=== PATIENT | male | born 1950 | race Caucasian/White ===

== ENCOUNTER 2020-04-19 20:12 | Inpatient (IN) | payer SELFPAY ==
[2020-04-19] VITALS (11 sets, daily range): BP systolic 128–212; BP diastolic 76–133; PULSE 78–134; RESP 18–29; O2SAT 87–100; BMI 29.5
--- NOTE | ~2020-04-19 | XR_ITS ---
EXAMINATION: XR CHEST CLINICAL INFORMATION: CHF COMPARISON: 07/07/2011 TECHNIQUE: Frontal view of the chest was obtained. FINDINGS: Compared to the prior study, the lungs are hypoventilated and diffuse ill-defined infiltrates are seen right greater than left. A small left pleural effusion is present. Differential diagnosis would include CHF with edema versus infection with multifocal infiltrates. XR/XR chest 1V IMPRESSION: Pulmonary infiltrates as described above. Differential includes CHF with edema versus multifocal infection.
--- NOTE | 2020-04-19 20:15 | ECG_ITS ---
Test Reason : REPEAT Blood Pressure : / mmHG Vent. Rate : 081 BPM Atrial Rate : 081 BPM P-R Int : 184 ms QRS Dur : 142 ms QT Int : 462 ms P-R-T Axes : 045 -44 103 degrees QTc Int : 536 ms Normal sinus rhythm Left axis deviation Non-specific intra-ventricular conduction block Nonspecific T wave abnormality Abnormal ECG When compared with ECG of 19-APR-2020 20:20, Left bundle branch block not present Referred By: Ash Ortega Electronically Signed By:Felix Kidd
--- NOTE | 2020-04-19 20:24 | ED_ITS ---
HPI - SOB/Dyspnea General Chief Complaint: Dyspnea Stated Complaint: resp distress Time Seen by Provider: 04/19/20 20:14 Source: patient Mode of arrival: EMS Limitations: no limitations History of Present Illness HPI Narrative: Patient with history of hypertension sleep apnea CHF COPD came by EMS for increased shortness of breath since 15:00 today patient was unable to speak full sentences when arrived by EMS on arrival patient's heart rate was 133 blood pressure 225/130 patient was an extremely respiratory distress sitting in tripod position,placed on BiPAP on arrival no fever no chills no recent COVID contact patient is on Lasix and noticed that his legs are more swollen lately MD elicited complaint: shortness of breath Related Data Home Medications Medication Instructions Recorded Confirmed No Known Home Meds 04/19/20 04/19/20 Allergies Allergy/AdvReac Type Severity Reaction Status Date / Time No Known Allergies Allergy Unverified 11/20/19 16:15 Review of Systems Review of Systems: Constitutional : No Weight loss, No Fever, No Chills ENT/Mouth : No sore throat, No Rhinorrhea Eyes: No Eye Pain, No Swelling Cardiovascular : No Chest Pain, no palpitations Respiratory : No Cough, No Sputum, ++ shortness of breath Gastrointestinal : no Nausea, No Vomiting, No Diarrhea, No abdominal Pain, no black stools Genitourinary : No Dysuria, No Urinary Frequency Musculoskeletal : No joint pain, No Myalgias, No Joint Swelling Skin : No Skin Lesions, No rash Neuro : No Weakness, No Numbness, No Dizziness, No Headache Psych : No Anxiety/Panic, No Depression Heme/Lymph: No Bruising, No Lymphadenopathy Endocrine : No Polyuria, No Polydipsia All other systems reviewed and are negative [facility] Past Medical History Medical History (Updated 04/20/20 @ 01:16 by Ash Ortega MD) Bladder cancer CHF (congestive heart failure) Social History Social History Alcohol intake: never Smoking Status: Current every day smoker Use of substances other than those prescribed or required for medical reasons: No Advance Directives: No Physical Exam Vital Signs: Vital Signs: Last Vital Signs Pulse 88 04/20/20 01:11 Resp 17 04/20/20 01:11 BP 140/92 H 04/20/20 01:11 Pulse Ox 98 04/20/20 00:00 Body Mass Index 29.5 Const: General: well developed, acute distress severe and respiratory, diaphoretic and ill appearing Orientation/consciousness: patient oriented x3 HENMT: Head: Yes normocephalic and Yes atraumatic Ears: hearing grossly normal bilaterally General nose exam: Normal external nose present Face and sinus: Yes sinuses nontender Mouth: Normal oral and palatal mucosa present Eyes: General: appearance normal, both eyes and all related structures Neck: Neck: Yes normal visual inspection Chest: Chest palpation & inspection: normal inspection of the chest and normal palpation of entire chest wall Resp: Effort & Inspection: audible wheezes, labored, nasal flaring and tac hypneic Auscultation: crackles, rales, rhonchi and wheezes Cardio: Jugular venous distension: no JVD Palpation: normal PMI Rate: tachycardic Rhythm: regular rhythm Heart sounds: S1 normal heart sound present and S2 normal heart sound present Peripheral pulses: Peripheral pulses 2+ throughout GI: Inspection: Yes normal to inspection Palpation (GI): Soft to palpation, nontender and no guarding Auscultation: normal bowel sounds : General: Yes no CVA tenderness Back/Spine/Pelvis: Back: no CVA tenderness Skin: General skin exam: no rashes or lesions noted Neuro: General: patient oriented x3, gait normal and no focal motor deficits Extrem: General: Yes full ROM, Yes no calf tenderness and Yes pedal edema (2+) Course Course Course Narrative: Patient with accelerated hypertension noncompliant to his medication came with acute shortness of breath with flash pulmonary edema improved after Lasix 80 mg IV nitro paste was applied and 2 doses of IV labetalol were given also patient received DuoNeb treatment initially patient was started on BiPAP now at this time patient is saturating 97% on 50% Venti mask Reevaluation(s) Reevaluation #1: Repeat EKG showed normal sinus rhythm left axis deviation left bundle branch block no acute ST T wave changes, T inversion in lead 1 and aVL Time: 01:07 Reevaluation #2: Repeat troponin showed the significant delta increase patient denied any chest pain neither at home or now elevated troponins likely from demand ischemia case discussed with Dr. Kidd dental mechanic for now with hockey with sudden use no need for heparin at this time is related to demand ischemia, do the serial cardiac enzymes , EKG compared with old EKG in 07/2011 no significant change was noticed Time: 01:13 MDM - SOB/Dyspnea MDM Narrative Medical decision making narrative: Patient's acute onset of shortness of breath with history of COPD and CHF clinically patient in CHF on arrival patient's blood pressure was elevated to 212/133 which improved after nitro paste and Lasix IV patient feeling much better now still on BiPAP will give another dose of Lasix. Chest x-ray showed CHF versus infiltrate will give prophylactically antibiotic Rocephin Zithromax patient with elevated lactic acid secondary to D uoNeb treatment and has elevated WBC count secondary to steroid administration. Patient clinically not septic Differential Diagnosis Differential diagnosis: Likely acute exacerbation of chronic obstructive airways disease, congestive heart failure and pneumonia Lab Data Attestation: I reviewed the patient's lab results. Result diagrams: 04/19/20 20:52 04/19/20 20:52 Labs: Lab Results 04/19/20 04/19/20 04/19/20 Range/Units 20:52 20:52 20:52 WBC 15.0 H (4.8-10.8) X10*3/uL RBC 5.36 (4.60-5.80) X10*6/uL Hgb 16.4 (14.0-18.0) g/dl Hct 49.1 (42-52) % MCV 91.6 (80-98) fL MCH 30.6 (27.0-33.0) pg MCHC 33.4 (31.0-36.0) g/dl RDW 13.5 (11.0-16.0) % Plt Count 341 (160-400) X10*3/uL MPV 9.9 (9.4-12.4) fL Immature Gran % (Auto) 0.7 H (0.0-0.4) % Neut % (Auto) 88.8 H (45-73) % Lymph % (Auto) 5.5 L (20-40) % Holt % (Auto) 3.7 (2-11) % Eos % (Auto) 0.6 (0-4) % Baso % (Auto) 0.7 (0-2) % Lymph # (Auto) 0.8 L (1.2-4.9) X10*3/uL Holt # (Auto) 0.6 (0.1-1.2) X10*3/uL Eos # (Auto) 0.1 (0.0-0.4) X10*3/uL Baso # (Auto) 0.1 (0.0-0.2) X10*3/uL Abs Immat Gran (auto) 0.11 H (0.00-0.03) X10*3/uL Absolute Neuts (auto) 13.3 H (2.0-8.3) X10*3/uL Absolute Nucleated RBC 0.000 (0.0-0.012) X10*3/uL Nucleated RBC % (auto) 0.0 (0.0-0.2) /100WBC PT 12.1 (10.8-13.0) SEC INR 1.0 (0.9-1.1) APTT 30.7 (24.1-38.0) SEC VBG pH (7.32-7.43) VBG pCO2 mmHg VBG pO2 mmHg VBG HCO3 mmol/L VBG O2 Saturation % VBG Base Excess mmol/L Sodium 141 (135-145) mmol/L Potassium 3.9 (3.3-5.1) mmol/L Chloride 106 (96-108) mmol/L Carbon Dioxide 23 (22-29) mmol/L Anion Gap 16 (12-20) BUN 17 H (9-16) mg/dL Creatinine 1.47 H (0.5-1.4) mg/dL Estim Creat Clear Calc 54.2 Estimated GFR 48 Random Glucose 268 H (60-115) mg/dL Lactic Acid (0.5-2.0) mmol/L Lactic Acid Fup @ 2Hr (0.5-2.0) mmol/L Calcium 8.4 (8.4-10.2) mg/dL Total Bilirubin 0.7 (0.0-1.0) mg/dL Direct Bilirubin 0.2 (0.0-0.5) mg/dL AST 17 (5-37) U/L ALT 10 (0-40) U/L Alkaline Phosphatase 94 (39-117) U/L Troponin I High Sens (<3.5-35.0) ng/L B-Natriuretic Peptide (<100) pg/mL Total Protein 7.1 (6.5-8.0) g/dL Albumin 3.6 (3.5-5.0) g/dL Procalcitonin ng/mL COVID-19 (GIOVANNY) (Negative) COVID-19 Clin Com 04/19/20 04/19/20 04/19/20 Range/Units 20:52 20:52 20:52 WBC (4.8-10.8) X10*3/uL RBC (4.60-5.80) X10*6/uL Hgb (14.0-18.0) g/dl Hct (42-52) % MCV (80-98) fL MCH (27.0-33.0) pg MCHC (31.0-36.0) g/dl RDW (11.0-16.0) % Plt Count (160-400) X10*3/uL MPV (9.4-12.4) fL Immature Gran % (Auto) (0.0-0.4) % Neut % (Auto) (45-73) % Lymph % (Auto) (20-40) % Holt % (Auto) (2-11) % Eos % (Auto) (0-4) % Baso % (Auto) (0-2) % Lymph # (Auto) (1.2-4.9) X10*3/uL Holt # (Auto) (0.1-1.2) X10*3/uL Eos # (Auto) (0.0-0.4) X10*3/uL Baso # (Auto) (0.0-0.2) X10*3/uL Abs Immat Gran (auto) (0.00-0.03) X10*3/uL Absolute Neuts (auto) (2.0-8.3) X10*3/uL Absolute Nucleated RBC (0.0-0.012) X10*3/uL Nucleated RBC % (auto) (0.0-0.2) /100WBC PT (10.8-13.0) SEC INR (0.9-1.1) APTT (24.1-38.0) SEC VBG pH (7.32-7.43) VBG pCO2 mmHg VBG pO2 mmHg VBG HCO3 mmol/L VBG O2 Saturation % VBG Base Excess mmol/L Sodium (135-145) mmol/L Potassium (3.3-5.1) mmol/L Chloride (96-108) mmol/L Carbon Dioxide (22-29) mmol/L Anion Gap (12-20) BUN (9-16) mg/dL Creatinine (0.5-1.4) mg/dL Estim Creat Clear Calc Estimated GFR Random Glucose (60-115) mg/dL Lactic Acid 2.4 H* (0.5-2.0) mmol/L Lactic Acid Fup @ 2Hr (0.5-2.0) mmol/L Calcium (8.4-10.2) mg/dL Total Bilirubin (0.0-1.0) mg/dL Direct Bilirubin (0.0-0.5) mg/dL AST (5-37) U/L ALT (0-40) U/L Alkaline Phosphatase (39-117) U/L Troponin I High Sens 66.3 H (<3.5-35.0) ng/L B-Natriuretic Peptide 677 H (<100) pg/mL Total Protein (6.5-8.0) g/dL Albumin (3.5-5.0) g/dL Procalcitonin ng/mL COVID-19 (GIOVANNY) Negative (Negative) COVID-19 Clin Com See Note 04/19/20 04/19/20 04/20/20 Range/Units 20:52 20:52 00:28 WBC (4.8-10.8) X10*3/uL RBC (4.60-5.80) X10*6/uL Hgb (14.0-18.0) g/dl Hct (42-52) % MCV (80-98) fL MCH (27.0-33.0) pg MCHC (31.0-36.0) g/dl RDW (11.0-16.0) % Plt Count (160-400) X10*3/uL MPV (9.4-12.4) fL Immature Gran % (Auto) (0.0-0.4) % Neut % (Auto) (45-73) % Lymph % (Auto) (20-40) % Holt % (Auto) (2-11) % Eos % (Auto) (0-4) % Baso % (Auto) (0-2) % Lymph # (Auto) (1.2-4.9) X10*3/uL Holt # (Auto) (0.1-1.2) X10*3/uL Eos # (Auto) (0.0-0.4) X10*3/uL Baso # (Auto) (0.0-0.2) X10*3/uL Abs Immat Gran (auto) (0.00-0.03) X10*3/uL Absolute Neuts (auto) (2.0-8.3) X10*3/uL Absolute Nucleated RBC (0.0-0.012) X10*3/uL Nucleated RBC % (auto) (0.0-0.2) /100WBC PT (10.8-13.0) SEC INR (0.9-1.1) APTT (24.1-38.0) SEC VBG pH 7.18 L* (7.32-7.43) VBG pCO2 49 mmHg VBG pO2 58 mmHg VBG HCO3 18 mmol/L VBG O2 Saturation 81.0 % VBG Base Excess -9.8 mmol/L Sodium (135-145) mmol/L Potassium (3.3-5.1) mmol/L Chloride (96-108) mmol/L Carbon Dioxide (22-29) mmol/L Anion Gap (12-20) BUN (9-16) mg/dL Creatinine (0.5-1.4) mg/dL Estim Creat Clear Calc Estimated GFR Random Glucose (60-115) mg/dL Lactic Acid (0.5-2.0) mmol/L Lactic Acid Fup @ 2Hr 1.9 (0.5-2.0) mmol/L Calcium (8.4-10.2) mg/dL Total Bilirubin (0.0-1.0) mg/dL Direct Bilirubin (0.0-0.5) mg/dL AST (5-37) U/L ALT (0-40) U/L Alkaline Phosphatase (39-117) U/L Troponin I High Sens (<3.5-35.0) ng/L B-Natriuretic Peptide (<100) pg/mL Total Protein (6.5-8.0) g/dL Albumin (3.5-5.0) g/dL Procalcitonin 0.08 ng/mL COVID-19 (GIOVANNY) (Negative) COVID-19 Clin Com 04/20/20 Range/Units 00:29 WBC (4.8-10.8) X10*3/uL RBC (4.60-5.80) X10*6/uL Hgb (14.0-18.0) g/dl Hct (42-52) % MCV (80-98) fL MCH (27.0-33.0) pg MCHC (31.0-36.0) g/dl RDW (11.0-16.0) % Plt Count (160-400) X10*3/uL MPV (9.4-12.4) fL Immature Gran % (Auto) (0.0-0.4) % Neut % (Auto) (45-73) % Lymph % (Auto) (20-40) % Holt % (Auto) (2-11) % Eos % (Auto) (0-4) % Baso % (Auto) (0-2) % Lymph # (Auto) (1.2-4.9) X10*3/uL Holt # (Auto) (0.1-1.2) X10*3/uL Eos # (Auto) (0.0-0.4) X10*3/uL Baso # (Auto) (0.0-0.2) X10*3/uL Abs Immat Gran (auto) (0.00-0.03) X10*3/uL Absolute Neuts (auto) (2.0-8.3) X10*3/uL Absolute Nucleated RBC (0.0-0.012) X10*3/uL Nucleated RBC % (auto) (0.0-0.2) /100WBC PT (10.8-13.0) SEC INR (0.9-1.1) APTT (24.1-38.0) SEC VBG pH (7.32-7.43) VBG pCO2 mmHg VBG pO2 mmHg VBG HCO3 mmol/L VBG O2 Saturation % VBG Base Excess mmol/L Sodium (135-145) mmol/L Potassium (3.3-5.1) mmol/L Chloride (96-108) mmol/L Carbon Dioxide (22-29) mmol/L Anion Gap (12-20) BUN (9-16) mg/dL Creatinine (0.5-1.4) mg/dL Estim Creat Clear Calc Estimated GFR Random Glucose (60-115) mg/dL Lactic Acid (0.5-2.0) mmol/L Lactic Acid Fup @ 2Hr (0.5-2.0) mmol/L Calcium (8.4-10.2) mg/dL Total Bilirubin (0.0-1.0) mg/dL Direct Bilirubin (0.0-0.5) mg/dL AST (5-37) U/L ALT (0-40) U/L Alkaline Phosphatase (39-117) U/L Troponin I High Sens 135.0 H D (<3.5-35.0) ng/L B-Natriuretic Peptide (<100) pg/mL Total Protein (6.5-8.0) g/dL Albumin (3.5-5.0) g/dL Procalcitonin ng/mL COVID-19 (GIOVANNY) (Negative) COVID-19 Clin Com ECG Data Attestation: I personally reviewed and interpreted this ECG as follows: Interpretation: Sinus tachycardia heart rate 133 beats per minute left bundle- branch block left axis deviation ST depression in V6 no acute ischemia Discharge Plan Discharge Clinical Impression: Acute exacerbation of chronic obstructive airways disease, Hypertensive crisis, Non-STEMI (non-ST elevated myocardial infarction) Congestive heart failure Qualifiers: Heart failure type: systolic Heart failure chronicity: acute on chronic Qualified Code(s): I50.23 - Acute on chronic systolic (congestive) heart failure Patient Disposition: Admitted As Inpatient
[2020-04-19] MEDS: Labetalol HCL 100 MG/20 ML VIAL 20 MG IVPUSH ×2 (20:29→23:45)
[2020-04-19] MEDS: Furosemide 40 MG/4 ML VIAL IVPUSH ×2 (20:30→22:28)
[2020-04-19] MEDS: Nitroglycerin 2 % Oint 1 GM Packet 1 INCH TRANSDERMA (20:30)
[2020-04-19 21:01] LABS: MANUAL DIFF FLAG NO
[2020-04-19 21:02] LABS: Basophils Absolute Auto 0.1 X10*3/uL (0.0-0.2); Basophils Percent Auto 0.7 % (0-2); Eosinophils Absolute Auto 0.1 X10*3/uL (0.0-0.4); Eosinophils Percent Auto 0.6 % (0-4); Hematocrit 49.1 % (42-52); Hemoglobin 16.4 g/dl (14.0-18.0); Imm Gran Abs Auto 0.11 X10*3/uL (0.00-0.03); Imm Gran Pct Auto 0.7 % (0.0-0.4); Lymphocytes Absolute Auto 0.8 X10*3/uL (1.2-4.9); Lymphocytes Percent Auto 5.5 % (20-40); Mean Corpuscular HGB Conc 33.4 g/dl (31.0-36.0); Mean Corpuscular Hemoglobin 30.6 pg (27.0-33.0); Mean Corpuscular Volume 91.6 fL (80-98); Mean Platelet Volume 9.9 fL (9.4-12.4); Monocytes Absolute Auto 0.6 X10*3/uL (0.1-1.2); Monocytes Percent Auto 3.7 % (2-11); Neutrophils Absolute Auto 13.3 X10*3/uL (2.0-8.3); Neutrophils Percent Auto 88.8 % (45-73); Platelet Count 341 X10*3/uL (160-400); Red Blood Count 5.36 X10*6/uL (4.60-5.80); Red Cell Distribution Width 13.5 % (11.0-16.0)
[2020-04-19 21:03] LABS: Base Excess VBG -9.8 mmol/L; HCO3 VBG 18 mmol/L; PCO2 VBG 49 mmHg; PO2 VBG 58 mmHg
--- NOTE | 2020-04-19 21:03 | PC.NURSE ---
pt continues to tripod, on side of bed, can't stand being in bed with feet up for cxr. cap refill is brisk but plus 3 pitting edema and discoloration of feet. nsr on monitor.
[2020-04-19 21:07] LABS: Prothrombin Time 12.1 SEC (10.8-13.0)
[2020-04-19 21:08] LABS: pH VBG 7.18 (7.32-7.43)
[2020-04-19 21:10] LABS: Partial Thromboplastin Time 30.7 SEC (24.1-38.0)
--- NOTE | 2020-04-19 21:16 | PC.NURSE ---
less diaphoretic. remains alert though work of breathing is still elevated, improving ever so slightly since arrival.
[2020-04-19 21:18] LABS: COVID-19 Test Negative (Negative)
[2020-04-19 21:21] LABS: Lactic Acid 2.4 mmol/L (0.5-2.0)
[2020-04-19 21:23] LABS: Alanine Aminotransferase 10 U/L (0-40); Albumin Level 3.6 g/dL (3.5-5.0); Alkaline Phosphatase 94 U/L (39-117); Anion Gap 16 (12-20); Aspartate Amino Transferase 17 U/L (5-37); Bilirubin Direct 0.2 mg/dL (0.0-0.5); Bilirubin Total 0.7 mg/dL (0.0-1.0); Blood Urea Nitrogen 17 mg/dL (9-16); Calcium 8.4 mg/dL (8.4-10.2); Carbon Dioxide 23 mmol/L (22-29); Chloride 106 mmol/L (96-108); Creatinine Clr Calc Pharmacy 54.2; Estimated Glomerular Filt Rate 48; Glucose Random 268 mg/dL (60-115); Potassium 3.9 mmol/L (3.3-5.1); Sodium 141 mmol/L (135-145); Total Protein 7.1 g/dL (6.5-8.0)
[2020-04-19 21:31] LABS: B Type Natriuretic Peptide 677 pg/mL (<100); Troponin-I High Sensitivity 66.3 ng/L (<3.5-35.0)
--- NOTE | 2020-04-19 21:36 | PC.NURSE ---
update to rebecca, girlfriend, on phone. she states that he had bladder ca but stopped treatments years ago. smokes 1ppd, drinks heavily at times but has never had the dt's. has chronic pain in legs and gout, doesn't go to the PCP.
[2020-04-19] MEDS: cefTRIAXone sodium 1 GM in 0.9 % Sodium Chloride 50 ML IV (22:29)
--- NOTE | 2020-04-19 22:31 | PC.NURSE ---
continues to improve, speaking full sentences. reports improvement. is aware of plan for admission. pt is a horrible historian. can't even remember what hospital system he visited last. ?[place] [facility] [place]
--- NOTE | 2020-04-19 22:50 | PC.NURSE ---
pcp is through [facility]. dr. natividad medrano [phone]
[2020-04-19 22:59] LABS: Reflex Lactate? Lactic Acid Added
[2020-04-19 23:13] LABS: Procalcitonin 0.08 ng/mL
[2020-04-19] MEDS: Azithromycin 500 MG in 0.9 % Sodium Chloride 250 ML 125 MG IV (23:35)
--- NOTE | 2020-04-19 23:38 | PC.NURSE ---
md in room for explanation of care. pt needs to have follow up. pt has not been taking any meds and is not seeing pcp.
--- NOTE | 2020-04-19 23:40 | ECG_ITS ---
Test Reason : DIFF BREATHING Blood Pressure : / mmHG Vent. Rate : 133 BPM Atrial Rate : 077 BPM P-R Int : 000 ms QRS Dur : 146 ms QT Int : 370 ms P-R-T Axes : 000 -50 086 degrees QTc Int : 550 ms Poor data quality, interpretation may be adversely affected Normal sinus rhythm Left axis deviation Left bundle branch block Abnormal ECG When compared with ECG of 06-JUL-2011 15:52, Left bundle branch block Present Referred By: Ash Ortega Electronically Signed By:Felix Kidd
[2020-04-19] MEDS: Albuterol/Iprat 2.5/0.5MG 3 ML AMPUL.NEB INHALE (23:49)
[2020-04-20] VITALS (11 sets, daily range): BP systolic 114–153; BP diastolic 59–92; PULSE 62–88; RESP 16–20; TEMP 36.2–36.9; O2SAT 96–99
[2020-04-20 00:52] LABS: ~Lactic Acid-LAB USE ONLY 1.9 mmol/L (0.5-2.0)
--- NOTE | 2020-04-20 01:47 | P.HPHOSP_ITS ---
History of Present Illness Date of Service: 04/20/20 Chief Complaint: SOB 69-year-old male with a past past medical history of hypertension, hyperlipidemia, COPD, CHF, question JAVY, alcohol abuse presented to the hospital with a chief complaint of acute onset of shortness of breath. Patient is a poor historian most of the history obtained from the ER staff and records. Reportedly patient started to have acute fractures of the started on 3:00 p.m. gradually worsened subsequently came to the ER for further evaluation. Patient denies any chest pain palpitations lightheadedness or dizziness. At the time of my interview patient mentioned that his breathing is improving. Denies any fever chills. Denies any numbness tingling. Denies any GI or symptoms. ER course: For ER physician patient when presented post reporting and noted to be in acute respiratory distress. Patient noted to have peripheral edema. Patient was placed on BiPAP given Lasix, DuoNebs, nitropaste. He blood gas showed pH of 7.18. After couple of hours patient for status improved. And subsequently transitioned to Ventimask. Patient currently saturating at 97%. ER physician mentioned that patient's troponin was elevated but patient denied any chest pain and EKG was nonischemic. The follow-up troponin doubled. Spoke to Dr. gonzalez with from Cardiology who mentioned it is likely demand ischemia and no need for heparin drip at this point. [facility] Medical History (Updated 04/20/20 @ 01:16 by Ash Ortega MD) Bladder cancer CHF (congestive heart failure) Social History Alcohol intake: never Smoking Status: Current every day smoker Use of substances other than those prescribed or required for medical reasons: No Advance Directives: No Meds Allergies Allergy/AdvReac Type Severity Reaction Status Date / Time No Known Allergies Allergy Unverified 11/20/19 16:15 Active Medications: Current Medications Generic Name Dose Route Start Last Admin Trade Name Freq PRN Reason Stop Dose Admin Acetaminophen 650 mg 04/20/20 01:29 Acetaminophen Supp 650 Mg Supp.Rect RI Q6H PRN Pain, Mild (Pain Scale 1-3) Albuterol/Ipratropium 3 ml 04/20/20 01:32 Albuterol/Iprat 2.5/0.5mg 3 Ml Ampul.Neb INHALE RQ4H PRN Shortness of Breath/Wheezing Aspirin 81 mg 04/20/20 01:40 Aspirin 81 Mg Tab.Chew PO DAILY [facility] Atorvastatin Calcium 40 mg 04/20/20 21:00 Atorvastatin Calcium 40 Mg Tablet PO BEDTIME [facility] Enoxaparin Sodium 40 mg 04/20/20 01:30 Enoxaparin Sodium 40 Mg/0.4 Ml Syringe SUBCUT Q24H [facility] Furosemide 40 mg 04/20/20 01:45 Furosemide 40 Mg/4 Ml Vial IVPUSH Q12H [facility] Protocol Ceftriaxone Sodium 1 gm/ 50 mls @ 100 mls/hr 04/20/20 01:45 Sodium Chloride IV Q24H [facility] Azithromycin 500 mg/ Sodium 250 mls @ 125 mls/hr 04/20/20 01:45 Chloride IV Q24H [facility] Insulin Human Lispro 0 unit 04/20/20 07:30 Insulin Lispro 100 Unit/Ml 3 Ml Vial SUBCUT QIDACHS [facility] Lorazepam 1 mg 04/20/20 01:33 Lorazepam 1 Mg Tablet PO 04/24/20 01:32 Q4H PRN Breakthrough alcohol withdrawa Metoprolol Succinate 25 mg 04/20/20 09:00 Metoprolol Succinate Er 25 Mg Tab.Er.24h PO DAILY [facility] Protocol Sodium Chloride 3 ml 04/20/20 08:00 0.9 % Sodium Chloride Flush 3 Ml Syringe IVFLUSH QSHIFT [facility] Zolpidem Tartrate 5 mg 04/20/20 01:29 Zolpidem Tartrate 5 Mg Tablet PO BEDTIME PRN Insomnia Home Medications Medication Instructions Recorded Confirmed Last Taken Type No Known Home Meds 04/19/20 04/19/20 Unknown History Physical Exam Vital Signs and Narrative: Vital Signs: Last Vital Signs Pulse 88 04/20/20 01:11 Resp 17 04/20/20 01:11 BP 140/92 H 04/20/20 01:11 Pulse Ox 98 04/20/20 00:00 Body Mass Index 29.5 Gen: Appears be in no acute distress. Able to finish sentences HEENT: NCAT, Moist mucosa. Pulmonary: Coarse breath sounds CVS: Normal S1-S2 Abdomen: BS+, Soft, Nontender; 2+ pitting edema Extremities: Warm well perfused Neuro: Alert and awake. Results Labs CBC and Chem 7: 04/19/20 20:52 04/19/20 20:52 Labs: Laboratory Results - last 24 hr 04/19/20 04/19/20 04/19/20 20:52 20:52 20:52 MCV 91.6 MCH 30.6 MCHC 33.4 RDW 13.5 Plt Count 341 MPV 9.9 Immature Gran % (Auto) 0.7 H Neut % (Auto) 88.8 H Lymph % (Auto) 5.5 L [place] % (Auto) 3.7 Eos % (Auto) 0.6 Baso % (Auto) 0.7 Lymph # (Auto) 0.8 L [place] # (Auto) 0.6 Eos # (Auto) 0.1 Baso # (Auto) 0.1 Abs Immat Gran (auto) 0.11 H Absolute Neuts (auto) 13.3 H Absolute Nucleated RBC 0.000 Nucleated RBC % (auto) 0.0 PT 12.1 INR 1.0 APTT 30.7 VBG pH VBG pCO2 VBG pO2 VBG HCO3 VBG O2 Saturation VBG Base Excess Anion Gap 16 Estim Creat Clear Calc 54.2 Estimated GFR 48 Random Glucose 268 H Lactic Acid Lactic Acid Fup @ 2Hr Calcium 8.4 Total Bilirubin 0.7 Direct Bilirubin 0.2 AST 17 ALT 10 Alkaline Phosphatase 94 Troponin I High Sens B-Natriuretic Peptide Total Protein 7.1 Albumin 3.6 Procalcitonin COVID-19 (GIOVANNY) COVID-Iconfinder 04/19/20 04/19/20 04/19/20 20:52 20:52 20:52 MCV MCH MCHC RDW Plt Count MPV Immature Gran % (Auto) Neut % (Auto) Lymph % (Auto) [place] % (Auto) Eos % (Auto) Baso % (Auto) Lymph # (Auto) [place] # (Auto) Eos # (Auto) Baso # (Auto) Abs Immat Gran (auto) Absolute Neuts (auto) Absolute Nucleated RBC Nucleated RBC % (auto) PT INR APTT VBG pH VBG pCO2 VBG pO2 VBG HCO3 VBG O2 Saturation VBG Base Excess Anion Gap Estim Creat Clear Calc Estimated GFR Random Glucose Lactic Acid 2.4 H* Lactic Acid Fup @ 2Hr Calcium Total Bilirubin Direct Bilirubin AST ALT Alkaline Phosphatase Troponin I High Sens 66.3 H B-Natriuretic Peptide 677 H Total Protein Albumin Procalcitonin COVID-19 (GIOVANNY) Negative COVID-19 Clin Com See Note 04/19/20 04/19/20 04/20/20 20:52 20:52 00:28 MCV MCH MCHC RDW Plt Count MPV Immature Gran % (Auto) Neut % (Auto) Lymph % (Auto) [place] % (Auto) Eos % (Auto) Baso % (Auto) Lymph # (Auto) [place] # (Auto) Eos # (Auto) Baso # (Auto) Abs Immat Gran (auto) Absolute Neuts (auto) Absolute Nucleated RBC Nucleated RBC % (auto) PT INR APTT VBG pH 7.18 L* VBG pCO2 49 VBG pO2 58 VBG HCO3 18 VBG O2 Saturation 81.0 VBG Base Excess -9.8 Anion Gap Estim Creat Clear Calc Estimated GFR Random Glucose Lactic Acid Lactic Acid Fup @ 2Hr 1.9 Calcium Total Bilirubin Direct Bilirubin AST ALT Alkaline Phosphatase Troponin I High Sens B-Natriuretic Peptide Total Protein Albumin Procalcitonin 0.08 COVID-19 (GIOVANNY) COVIDCertiVox 04/20/20 00:29 MCV MCH MCHC RDW Plt Count MPV Immature Gran % (Auto) Neut % (Auto) Lymph % (Auto) [place] % (Auto) Eos % (Auto) Baso % (Auto) Lymph # (Auto) [place] # (Auto) Eos # (Auto) Baso # (Auto) Abs Immat Gran (auto) Absolute Neuts (auto) Absolute Nucleated RBC Nucleated RBC % (auto) PT INR APTT VBG pH VBG pCO2 VBG pO2 VBG HCO3 VBG O2 Saturation VBG Base Excess Anion Gap Estim Creat Clear Calc Estimated GFR Random Glucose Lactic Acid Lactic Acid Fup @ 2Hr Calcium Total Bilirubin Direct Bilirubin AST ALT Alkaline Phosphatase Troponin I High Sens 135.0 H D B-Natriuretic Peptide Total Protein Albumin Procalcitonin COVID-19 (GIOVANNY) COVID-Iconfinder Imaging Radiologist's Impressions: Impressions Chest X-Ray 04/19/20 20:17 IMPRESSION: Pulmonary infiltrates as described above. Differential includes CHF with edema versus multifocal infection. Assessment and Plan (1) Congestive heart failure: Qualifiers: Heart failure chronicity: acute on chronic Heart failure type: systolic Qualified Code(s): I50.23 - Acute on chronic systolic (congestive) heart failure Status: Acute 69-year-old male with a past medical history of hypertension, hyperlipidemia, COPD, CHF, question JAVY, bladder cancer, alcohol abuse presented to the hospital with a chief complaint of acute onset of shortness of breath. Noted to be in acute respiratory distress. Briefly on BiPAP and subsequently transitioned to Ventimask. Admitted to the hospital for further management. Acute hypoxic respiratory failure: Likely in the setting of CHF/COPD/pneumonia. Patient was briefly on the BiPAP in the ER. Transition to Ventimask. Currently saturating at 97%. Respiratory status improved. Patient received Lasix, nitro paste, duo nebs, antibiotics. Will continue to monitor D-dimer elevated: Cannot do CT with PE protocol given renal insufficiency; and likely V/Q scan will be limited secondary to pulmonary disease. On empiric Lovenox. Hypertensive urgency: Patient blood pressure on presentation was 230/130. Neto talbot received nitro paste as well as labetalol x2. Patient's blood pressure improved to 128/78 in the ER. Will continue to monitor. Patient will be started on metoprolol succinate From tomorrow. Acute CHF: Echocardiogram, telemetry, I's and os, daily weights. Continue Lasix IV b.i.d. to titrate the dose based on the kidney function-defer to primary team in the morning. Will start the patient on aspirin, statin, metoprolol succinate. No Ish inhibitors given elevated kidney function. Cardiology consult NADYA: Avoid nephrotoxins. Monitor levels while diuresing. Adjust Lasix doses accordingly. Elevated troponins: Patient denies any chest pain. Follow-up troponins doubled. Dr. Gonzalez from Cardiology made aware and mentioned likely demand ischemia, and okay to admit to the [facility] Likely demand versus NSTEMI. Will keep the patient on Lovenox at therapeutic dose until further evaluation by Cardiology in the morning. Cycle enzymes Pneumonia: COVID-19 negative. Continue empiric IV antibiotics. Blood cultures sent. Will also send urine Legionella and strep pneumo. COPD: Will give the patient on DuoNebs. Patient would benefit outpatient pulmonary function test and sleep studies. Lactic acidosis: Likely in the setting of acute hypoxia. Monitor levels. Patient also received nebulizer treatments. Hyperglycemia: Stress response versus diabetes. Will send hemoglobin A1c. Will keep the patient on insulin sliding scale. Monitor fingersticks. History of alcohol abuse: [facility] protocol with Ativan. DVT prophylaxis: Lovenox GI prophylaxis: Pantoprazole Full code
[2020-04-20 01:56] LABS: D Dimer 659 NG/ML
[2020-04-20 02:31] LABS: ABG PCO2 31 mmHg (32-45); Base Excess ABG -5.9; HCO3 ABG 18 mmol/L (22-26); PO2 ABG 116 mmHg (83-108); Pt Ventilation O2% 50%; pH ABG 7.36 (7.35-7.45)
[2020-04-20] MEDS: Aspirin 81 MG TAB.CHEW PO ×2 (03:18→08:37)
[2020-04-20] MEDS: Enoxaparin Sodium 100 MG/ML SYRINGE 90 MG SUBCUT ×2 (03:18→15:08)
--- NOTE | 2020-04-20 03:32 | PC.NURSE ---
PATIENT REPEATEDLY TAKING OFF VENTI MASK, STATING I CAN'T SLEEP WITH THIS ON , VENTI MASK REMOVED AND PATIENT PLACED ON 4 L NASAL CANNULA. PATIENT AGREEABLE TO NASAL CANNULA, REFUSING TO PLACE THE VENTI MASK BACK ON. O2 SAT REMAINING AT 97-99% ON 4 L.
--- NOTE | 2020-04-20 07:30 | CA_ITS ---
Transthoracic Echocardiogram Patient (Last, First, Middle): Doug Tompkins, Gender: Male Date of : 1950 Age: 69 Procedure Date: 04/20/2020 Procedure Type: Transthoracic Echocardiogram Location: ER Height: 175.26 cm Weight: 90.72 kg BSA: 2.07 m2 Heart Rate: bpm BP: 161 / 121 mmHg [employer]: Referring MD: Priyank Sherwood MD Symptoms: chf Study Quality: Good ECG Rhythm: Atrial Fibrillation Conclusions: - There is severely increased left ventricular wall thickness. - The left ventricular systolic function is severely decreased. - The visually estimated ejection fraction is between 10-15%. - E/E prime ratio is >15, consistent with elevated filling pressures. - The left atrium is severely dilated. Findings Left Ventricle Normal left ventricular cavity size. There is severely increased left ventricular wall thickness. The left ventricular systolic function is severely decreased. The visually estimated ejection fraction is between 10 15%. There is severe global hypokinesis. Abnormal diastolic function is noted. Spectral Doppler is indicative of a pseudonormal filling pattern. E/E prime ratio is >15, consistent with elevated filling pressures. Right Ventricle Normal right ventricular cavity size and systolic function. Atria The left atrium is severely dilated. Aortic Valve There is a normal trileaflet aortic valve. There is no aortic valve stenosis. There is no aortic valve regurgitation. Mitral Valve The mitral valve appears normal. There is mild to moderate mitral valve regurgitation. There is no mitral valve stenosis. Pulmonic Valve Normal pulmonic valve structure and function. There is trace pulmonic valve regurgitation. Tricuspid Valve Normal tricuspid valve structure. There is mild tricuspid valve regurgitation. Normal right atrial pressure. There is no evidence of pulmonary hypertension. Great Vessels All visible segments of the aorta are normal in size. The visualized portions of the pulmonary artery and branches are normal. Venous The inferior vena cava is normal in size and collapses greater than 50% with inspiration. Pericardium/Pleural There is no evidence of pericardial effusion. Prior Study Comparison Changes noted compared to prior study dated: 07/07/2011. EF severely reduced now. Measurements 2D Linear Measurements IVSd: 1.46 0.6-0.9/0.6-1.0 cm LVIDd: 5.33 3.9-5.3/4.2-5.9 cm LVIDd Index: 2.57 2.4-3.2/2.2-3.1 cm/m2 LVIDs: 4.92 2.0-3.6 cm LVPWd: 1.48 0.7-1.1 cm Ao Root: 3.40 2.1-3.5 cm LA Diam: 4.60 2.7-3.8/3.0-4.0 cm LAIDs Index: 2.22 1.5-2.3 cm/m2 LV Mass: 430.76 67-162/88-224 g LV Mass Index: 208.10 43-95/49-115 g/m2 LVOT Diam: 2.30 3.0+(-)1.3 cm 2D Systolic Function EF 4C: 16.50 >55% EF 2C: 21.30 >55% Mitral Valve MV Pk E: 1.04 MV PK A: 0.75 MV Decel Time: 158.00 E/A: 1.40 E'Lateral: 5.71 E'Medial: 3.58 E/E' Med: 29.10 E/E' Lat: 18.20 PHT: 46.00 MVA PHT: 4.78 Decel Assumption: 6.58 Aortic Valve AoV Pk Juan Jose: 1.70 AoV Mn Juan Jose: 1.22 AoV VTI: 0.38 AoV Pk Grad: 12.00 Aov Mn Grad: 7.00 JONI Cont.VTI: 1.87 LVOT LVOT Pk Juan Jose: 0.79 LVOT Mn Juan Jose: 0.57 LVOT VTI: 0.17 LVOT Pk Grad: 3.00 LVOT Mn Grad: 1.00 LVOT Diam: 2.30 LVOT Area: 4.15 Diastolic Function MV Pk E: 1.04 MV Pk A: 0.75 E/A: 1.40 E'Medial: 3.58 E/E' Med: 29.10 E' Laterial: 5.71 E/E' Lat: 18.20 Tricuspid Valve TR Pk Juan Jose: 2.23 TR Pk Grad: 20.00 RA Press: 8.00 RVSP: 28.00 Great Vessels Aorta Ao Root-2D: 3.40 2.0-3.7 cm Pulmonary Valve PV Pk Juan Jose: 1.18 Peak PV Grad: 6.00 Updated in Other Vendor System with Status of Final Felix Kidd MD electronically signed on 04/20/2020 1:17:11 PM with status of Final
[2020-04-20 08:09] LABS: Basophils Percent Auto 0.1 % (0-2); Eosinophils Percent Auto 0.1 % (0-4); Hemoglobin 14.9 g/dl (14.0-18.0); Imm Gran Abs Auto 0.02 X10*3/uL (0.00-0.03); Imm Gran Pct Auto 0.2 % (0.0-0.4); Lymphocytes Absolute Auto 0.4 X10*3/uL (1.2-4.9); Lymphocytes Percent Auto 4.7 % (20-40); MANUAL DIFF FLAG SCAN; Mean Corpuscular HGB Conc 34.7 g/dl (31.0-36.0); Mean Corpuscular Volume 89.4 fL (80-98); Mean Platelet Volume 10.1 fL (9.4-12.4); Monocytes Absolute Auto 0.1 X10*3/uL (0.1-1.2); Monocytes Percent Auto 0.6 % (2-11); Neutrophils Percent Auto 94.3 % (45-73); Platelet Count 271 X10*3/uL (160-400); Red Blood Count 4.81 X10*6/uL (4.60-5.80); Red Cell Distribution Width 13.4 % (11.0-16.0); SCAN SMEAR FLAG 1; White Blood Count 8.5 X10*3/uL (4.8-10.8)
[2020-04-20 08:28] LABS: Estimated Average Glucose 88 mg/dL; Hemoglobin A1c % 4.7 %; Lactic Acid 3.1 mmol/L (0.5-2.0)
[2020-04-20 08:31] LABS: SLIDE REVIEW VERIFIED
[2020-04-20] MEDS: 0.9 % Sodium Chloride Flush 3 ML SYRINGE IVFLUSH ×2 (08:36→22:59)
[2020-04-20] MEDS: Furosemide 40 MG/4 ML VIAL IVPUSH ×2 (08:36→18:24)
[2020-04-20] MEDS: Metoprolol Succinate ER 25 MG TAB.ER.24H PO (08:37)
[2020-04-20 10:06] LABS: Reflex Lactate? Lactic Acid Added
[2020-04-20 10:07] LABS: Anion Gap 19 (12-20); Blood Urea Nitrogen 22 mg/dL (9-16); Calcium 8.4 mg/dL (8.4-10.2); Carbon Dioxide 22 mmol/L (22-29); Chloride 103 mmol/L (96-108); Estimated Glomerular Filt Rate 51; Glucose Random 163 mg/dL (60-115); Potassium 3.9 mmol/L (3.3-5.1); Sodium 140 mmol/L (135-145)
[2020-04-20 10:15] LABS: Troponin-I High Sensitivity 156.7 ng/L (<3.5-35.0)
--- NOTE | 2020-04-20 11:12 | P.CONCA_ITS ---
History of Present Illness History of Present Illness Date of Service: 04/20/20 Requesting physician: Nestor Berrios Chief complaint: CHF Narrative: 69-year-old gentleman with background history of tobacco abuse, alcohol use uncontrolled hypertension and known cardiomyopathy with EF of 35-40% based on echocardiography from 2011. He has been noncompliant with medications. He said he stopped taking his blood pressure medications because he was trying to clear his system. He has been smoking 1 and half pack of cigarettes per day. He also continues to drink but is saying that he drinks rarely. He said he cannot tell how often he drinks. No other drug abuse. He said he started feeling shortness of breath few days ago and he took his Lasix but his dyspnea d id not improve. Yesterday his blood pressure was significantly elevated and he was short of breath and he came to the emergency department. Initially his blood pressure was in 200s. He was given IV medications to control blood pressure as well as diuretics. He said his breathing is improved but he continues to have some swelling of lower extremities. His blood pressure is still elevated. He was getting echocardiogram when I saw him and for report is pending but his EF was moderate to severely reduced and it was global hypokinesis. Review of Systems Review of Systems: Shortness of breath, lower extremity edema Yes all other systems are reviewed and are negative COUNTS INCLUDE 234 BEDS AT THE [facility] Past Medical History Medical History (Updated 04/20/20 @ 11:25 by Felix Kidd MD) Bladder cancer CHF (congestive heart failure) Social History Social History Alcohol intake: never Smoking Status: Current every day smoker Use of substances other than those prescribed or required for medical reasons: No Advance Directives: No Meds Allergies Allergy/AdvReac Type Severity Reaction Status Date / Time No Known Allergies Allergy Unverified 11/20/19 16:15 Active Medications: Current Medications Generic Name Dose Route Start Last Admin Trade Name Freq PRN Reason Stop Dose Admin Acetaminophen 650 mg 04/20/20 01:29 Acetaminophen Supp 650 Mg Supp.Rect [place] Q6H PRN Pain, Mild (Pain Scale 1-3) Albuterol/Ipratropium 3 ml 04/20/20 01:32 Albuterol/Iprat 2.5/0.5mg 3 Ml Ampul.Neb INHALE RQ4H PRN Shortness of Breath/Wheezing Aspirin 81 mg 04/20/20 01:40 04/20/20 08:37 Aspirin 81 Mg Tab.Chew PO 81 mg DAILY [facility] Administration Atorvastatin Calcium 40 mg 04/20/20 21:00 Atorvastatin Calcium 40 Mg Tablet PO BEDTIME [facility] Enoxaparin Sodium 90 mg 04/20/20 03:00 04/20/20 03:18 Enoxaparin Sodium 100 Mg/Ml Syringe SUBCUT 90 mg Q12H [facility] Administration Furosemide 40 mg 04/20/20 08:00 04/20/20 08:36 Furosemide 40 Mg/4 Ml Vial IVPUSH 40 mg BIDWM [facility] Administration Protocol Ceftriaxone Sodium 1 gm/ 50 mls @ 100 mls/hr 04/20/20 22:00 Sodium Chloride IV Q24H [facility] Azithromycin 500 mg/ Sodium 250 mls @ 125 mls/hr 04/20/20 23:00 Chloride IV Q24H [facility] Insulin Human Lispro 0 unit 04/20/20 07:30 04/20/20 08:35 Insulin Lispro 100 Unit/Ml 3 Ml Vial SUBCUT Not Given QIDACHS [facility] Protocol Lisinopril 10 mg 04/20/20 12:00 Lisinopril 10 Mg Tablet PO DAILY [facility] Protocol Lorazepam 1 mg 04/20/20 01:33 Lorazepam 1 Mg Tablet PO 04/24/20 01:32 Q4H PRN Breakthrough alcohol withdrawa Metoprolol Succinate 25 mg 04/20/20 09:00 04/20/20 08:37 Metoprolol Succinate Er 25 Mg Tab.Er.24h PO 25 mg DAILY [facility] Administration Protocol Sodium Chloride 3 ml 04/20/20 08:00 04/20/20 08:36 0.9 % Sodium Chloride Flush 3 Ml Syringe IVFLUSH 3 ml QSHIFT [facility] Administration Zolpidem Tartrate 5 mg 04/20/20 01:29 Zolpidem Tartrate 5 Mg Tablet PO BEDTIME PRN Insomnia Home Medications Medication Instructions Recorded Confirmed Last Taken Type No Known Home Meds 04/19/20 04/19/20 Unknown History Physical Exam Vital Signs: Vital Signs: Last Vital Signs Temp 98.4 F 04/20/20 01:29 Pulse 62 04/20/20 08:37 Resp 20 04/20/20 05:59 BP 142/88 H 04/20/20 08:37 Pulse Ox 97 04/20/20 05:59 Body Mass Index 29.5 GENERAL APPEARANCE: in no acute distress, well developed, well nourished. HEENT: unremarkable. HEAD: normocephalic, atraumatic. NECK/THYROID: no carotid bruit, JVD approximately 13-14 cm water SKIN: no suspicious lesions, warm and dry. HEART: no murmurs, regular rate and rhythm, S1, S2 normal. LUNGS: clear to auscultation bilaterally. ABDOMEN: normal, bowel sounds present, soft, nontender, nondistended. EXTREMITIES: no clubbing, cyanosis. Edema 1+ bilaterally. PERIPHERAL PULSES: equal. NEUROLOGIC: nonfocal, alert and oriented. PSYCH: mood/affect full range. Results Labs and Meds Result diagrams: 04/20/20 08:02 04/20/20 09:31 Lab results: Laboratory Results - last 24 hr 04/19/20 04/19/20 04/19/20 20:52 20:52 20:52 WBC 15.0 H RBC 5.36 Hgb 16.4 Hct 49.1 MCV 91.6 MCH 30.6 MCHC 33.4 RDW 13.5 Plt Count 341 MPV 9.9 Immature Gran % (Auto) 0.7 H Neut % (Auto) 88.8 H Lymph % (Auto) 5.5 L [place] % (Auto) 3.7 Eos % (Auto) 0.6 Baso % (Auto) 0.7 Lymph # (Auto) 0.8 L [place] # (Auto) 0.6 Eos # (Auto) 0.1 Baso # (Auto) 0.1 Abs Immat Gran (auto) 0.11 H Absolute Neuts (auto) 13.3 H Absolute Nucleated RBC 0.000 Nucleated RBC % (auto) 0.0 Smear Tech's Comments PT 12.1 INR 1.0 APTT 30.7 D-Dimer 659 ABG pH ABG pCO2 ABG pO2 ABG HCO3 ABG O2 Saturation ABG Base Excess VBG pH VBG pCO2 VBG pO2 VBG HCO3 VBG O2 Saturation VBG Base Excess Oxygen Given Sodium 141 Potassium 3.9 Chloride 106 Carbon Dioxide 23 Anion Gap 16 BUN 17 H Creatinine 1.47 H Estim Creat Clear Calc 54.2 Estimated GFR 48 Random Glucose 268 H Estimat Average Glucose Hemoglobin A1c % Lactic Acid Lactic Acid Fup @ 2Hr Calcium 8.4 Total Bilirubin 0.7 Direct Bilirubin 0.2 AST 17 ALT 10 Alkaline Phosphatase 94 Troponin I High Sens B-Natriuretic Peptide Total Protein 7.1 Albumin 3.6 Procalcitonin COVID-19 (GIOVANNY) COVID-19 [employer] 04/19/20 04/19/20 04/19/20 20:52 20:52 20:52 WBC RBC Hgb Hct MCV MCH MCHC RDW Plt Count MPV Immature Gran % (Auto) Neut % (Auto) Lymph % (Auto) [place] % (Auto) Eos % (Auto) Baso % (Auto) Lymph # (Auto) [place] # (Auto) Eos # (Auto) Baso # (Auto) Abs Immat Gran (auto) Absolute Neuts (auto) Absolute Nucleated RBC Nucleated RBC % (auto) Smear Tech's Comments PT INR APTT D-Dimer ABG pH ABG pCO2 ABG pO2 ABG HCO3 ABG O2 Saturation ABG Base Excess VBG pH VBG pCO2 VBG pO2 VBG HCO3 VBG O2 Saturation VBG Base Excess Oxygen Given Sodium Potassium Chloride Carbon Dioxide Anion Gap BUN Creatinine Estim Creat Clear Calc Estimated GFR Random Glucose Estimat Average Glucose Hemoglobin A1c % Lactic Acid 2.4 H* Lactic Acid Fup @ 2Hr Calcium Total Bilirubin Direct Bilirubin AST ALT Alkaline Phosphatase Troponin I High Sens 66.3 H B-Natriuretic Peptide 677 H Total Protein Albumin Procalcitonin COVID-19 (GIOVANNY) Negative COVID-19 Fluid Stone See Note 04/19/20 04/19/20 04/20/20 20:52 20:52 00:28 WBC RBC Hgb Hct MCV MCH MCHC RDW Plt Count MPV Immature Gran % (Auto) Neut % (Auto) Lymph % (Auto) [place] % (Auto) Eos % (Auto) Baso % (Auto) Lymph # (Auto) [place] # (Auto) Eos # (Auto) Baso # (Auto) Abs Immat Gran (auto) Absolute Neuts (auto) Absolute Nucleated RBC Nucleated RBC % (auto) Smear Tech's Comments PT INR APTT D-Dimer ABG pH ABG pCO2 ABG pO2 ABG HCO3 ABG O2 Saturation ABG Base Excess VBG pH 7.18 L* VBG pCO2 49 VBG pO2 58 VBG HCO3 18 VBG O2 Saturation 81.0 VBG Base Excess -9.8 Oxygen Given Sodium Potassium Chloride Carbon Dioxide Anion Gap BUN Creatinine Estim Creat Clear Calc Estimated GFR Random Glucose Estimat Average Glucose Hemoglobin A1c % Lactic Acid Lactic Acid Fup @ 2Hr 1.9 Calcium Total Bilirubin Direct Bilirubin AST ALT Alkaline Phosphatase Troponin I High Sens B-Natriuretic Peptide Total Protein Albumin Procalcitonin 0.08 COVID-19 (GIOVANNY) COVID-19 [employer] 04/20/20 04/20/20 04/20/20 00:29 02:16 08:02 WBC 8.5 RBC 4.81 Hgb 14.9 Hct 43.0 MCV 89.4 MCH 31.0 MCHC 34.7 RDW 13.4 Plt Count 271 MPV 10.1 Immature Gran % (Auto) 0.2 Neut % (Auto) 94.3 H Lymph % (Auto) 4.7 L [place] % (Auto) 0.6 L Eos % (Auto) 0.1 Baso % (Auto) 0.1 Lymph # (Auto) 0.4 L [place] # (Auto) 0.1 Eos # (Auto) 0.0 Baso # (Auto) 0.0 Abs Immat Gran (auto) 0.02 Absolute Neuts (auto) 8.0 Absolute Nucleated RBC 0.000 Nucleated RBC % (auto) 0.0 Smear Tech's Comments VERIFIED PT INR APTT D-Dimer ABG pH 7.36 ABG pCO2 31 L ABG pO2 116 H ABG HCO3 18 L ABG O2 Saturation 99.0 ABG Base Excess -5.9 VBG pH VBG pCO2 VBG pO2 VBG HCO3 VBG O2 Saturation VBG Base Excess Oxygen Given 50% Sodium Potassium Chloride Carbon Dioxide Anion Gap BUN Creatinine Estim Creat Clear Calc Estimated GFR Random Glucose Estimat Average Glucose Hemoglobin A1c % Lactic Acid Lactic Acid Fup @ 2Hr Calcium Total Bilirubin Direct Bilirubin AST ALT Alkaline Phosphatase Troponin I High Sens 135.0 H D B-Natriuretic Peptide Total Protein Albumin Procalcitonin COVID-19 ([facility]OV[facility]NY) COVID-19 Clin Com 04/20/20 04/20/20 04/20/20 08:02 08:02 09:31 WBC RBC Hgb Hct MCV MCH MCHC RDW Plt Count MPV Immature Gran % (Auto) Neut % (Auto) Lymph % (Auto) [place] % (Auto) Eos % (Auto) Baso % (Auto) Lymph # (Auto) [place] # (Auto) Eos # (Auto) Baso # (Auto) Abs Immat Gran (auto) Absolute Neuts (auto) Absolute Nucleated RBC Nucleated RBC % (auto) Smear Tech's Comments PT INR APTT D-Dimer ABG pH ABG pCO2 ABG pO2 ABG HCO3 ABG O2 Saturation ABG Base Excess VBG pH VBG pCO2 VBG pO2 VBG HCO3 VBG O2 Saturation VBG Base Excess Oxygen Given Sodium 140 Potassium 3.9 Chloride 103 Carbon Dioxide 22 Anion Gap 19 BUN 22 H Creatinine 1.40 Estim Creat Clear Calc 57.0 Estimated GFR 51 Random Glucose 163 H D Estimat Average Glucose 88 Hemoglobin A1c % 4.7 Lactic Acid 3.1 H* Lactic Acid Fup @ 2Hr Calcium 8.4 Total Bilirubin Direct Bilirubin AST ALT Alkaline Phosphatase Troponin I High Sens B-Natriuretic Peptide Total Protein Albumin Procalcitonin COVID-19 (GIOVANNY) [employer] 04/20/20 09:31 WBC RBC Hgb Hct MCV MCH MCHC RDW Plt Count MPV Immature Gran % (Auto) Neut % (Auto) Lymph % (Auto) [place] % (Auto) Eos % (Auto) Baso % (Auto) Lymph # (Auto) [place] # (Auto) Eos # (Auto) Baso # (Auto) Abs Immat Gran (auto) Absolute Neuts (auto) Absolute Nucleated RBC Nucleated RBC % (auto) Smear Tech's Comments PT INR APTT D-Dimer ABG pH ABG pCO2 ABG pO2 ABG HCO3 ABG O2 Saturation ABG Base Excess VBG pH VBG pCO2 VBG pO2 VBG HCO3 VBG O2 Saturation VBG Base Excess Oxygen Given Sodium Potassium Chloride Carbon Dioxide Anion Gap BUN Creatinine Estim Creat Clear Calc Estimated GFR Random Glucose Estimat Average Glucose Hemoglobin A1c % Lactic Acid Lactic Acid Fup @ 2Hr Calcium Total Bilirubin Direct Bilirubin AST ALT Alkaline Phosphatase Troponin I High Sens 156.7 H B-Natriuretic Peptide Total Protein Albumin Procalcitonin COVID-19 (GIOVANNY) COVID-19 Fluid Stone ECG Attestation: I personally reviewed and interpreted this ECG as follows: (Sinus rhythm, interventricular conduction delay, nonspecific ST-T changes.) Imaging Radiologist's impression: Impressions Chest X-Ray 04/19/20 20:17 IMPRESSION: Pulmonary infiltrates as described above. Differential includes CHF with edema versus multifocal infection. Assessment and Plan (1) Congestive heart failure: Qualifiers: Heart failure chronicity: acute on chronic Heart failure type: systolic Qualified Code(s): I50.23 - Acute on chronic systolic (congestive) heart failure Status: Acute (2) Hypertensive crisis: Status: Acute (3) Non-STEMI (non-ST elevated myocardial infarction): Status: Acute (4) Cardiomyopathy: Qualifiers: Cardiomyopathy type: unspecified Qualified Code(s): I42.9 - Cardiomyopathy, unspecified Status: Acute [age] gentleman with background of tobacco abuse and alcoho use and medical noncompliance who is presenting with shortness of breath and is noticed to have significantly elevated blood pressures. He has known history of cardiomyopathy with EF of 35-40% based on echocardiography in 2012. His full ECHO is yet to be completed but some of the images I reviewed while the echo was being performed showed significantly reduced ejection fraction probably in the severe range. He has significantly elevated blood pressures as well as volume overload right now. I am adding lisinopril 10 mg once a day. He should continue the Lasix 40 mg IV b.i.d.. The metoprolol dose should not be titrated further. We will control his blood pressure and then discuss about ischemic evaluation. His blood pressure and his volume status needs to be improved before we do any further testing on he is a heavy smoker and is smoking 1 and half pack per day and we discussed about smoking cessation which he will think about. He drinks alcohol and he is unsure how much he drinks. We will monitor closely for withdrawal in the hospital. He had type 2 myocardial infarction due to significantly elevated blood pressures. I think if there is no bleeding concerns and he should be on baby aspirin. We will follow closely along with you as his issues are quite complex. I think the biggest albert is medical noncompliance. Thank you for allowing me to participate in the care of your patient. Please feel free to contact me if you have any questions.
[2020-04-20 11:13] LABS: ~Lactic Acid-LAB USE ONLY 3.7 mmol/L (0.5-2.0)
--- NOTE | 2020-04-20 11:39 | PC.NURSE ---
Informed MD Berrios about 3.7 Lactic acid, per MD no need to repeat Lactic.
[2020-04-20 12:39] LABS: Reflex Lactate? 2 Y
[2020-04-20 13:42] LABS: ~Lactic Acid-LAB USE ONLY 2.8 mmol/L (0.5-2.0)
--- NOTE | 2020-04-20 13:49 | MHC.CM.PN ---
Attempted to meet with patient in regards to discharge planning. Patient is currently short of breath. Spoke with patient's sig other, Elaine via telephone at [phone]. Patient lives alone, ambulates independently and had no services prior to coming to the hospital. Patient is a retired real estate processor. He never signed up for Medicare at age 67 and now has no insurance. He has been inactive with his PCP since 2018 and currently does not have a PCP. He was last hospitalized at [facility] around 2015 for bladder cancer treatment[address] Dr Aiken was his urologist. Financial counselors will be asked to see patient to look into health insurance options. Per hamzah Henryptes patient will sign out against medical advice. Continue to monitor for d/c needs.
[2020-04-20 18:23] LABS: Glucose, Whole Blood 135 mg/dL (60-115)
[2020-04-20 20:06] LABS: Glucose, Whole Blood 193 mg/dL (60-115)
[2020-04-20] MEDS: Atorvastatin Calcium 40 MG TABLET PO (21:38)
[2020-04-20] MEDS: Insulin Lispro 100 UNIT/ML 3 ML VIAL SUBCUT (21:38)
[2020-04-20] MEDS: cefTRIAXone sodium 1 GM in 0.9 % Sodium Chloride 50 ML IV (21:39)
[2020-04-20] MEDS: Azithromycin 500 MG in 0.9 % Sodium Chloride 250 ML 125 MG IV (22:54)
[2020-04-20] MEDS: Zolpidem Tartrate 5 MG TABLET PO (22:59)
[2020-04-21 04:00] VITALS: BP 131/78; PULSE 79; RESP 18; TEMP 36.6; O2SAT 95
[2020-04-21 04:59] LABS: MANUAL DIFF FLAG NO
[2020-04-21 05:02] LABS: Basophils Percent Auto 0.1 % (0-2); Eosinophils Percent Auto 0.2 % (0-4); Hematocrit 40.6 % (42-52); Hemoglobin 13.9 g/dl (14.0-18.0); Imm Gran Abs Auto 0.08 X10*3/uL (0.00-0.03); Imm Gran Pct Auto 0.6 % (0.0-0.4); Lymphocytes Absolute Auto 0.8 X10*3/uL (1.2-4.9); Lymphocytes Percent Auto 5.9 % (20-40); Mean Corpuscular HGB Conc 34.2 g/dl (31.0-36.0); Mean Corpuscular Hemoglobin 30.7 pg (27.0-33.0); Mean Corpuscular Volume 89.6 fL (80-98); Mean Platelet Volume 10.5 fL (9.4-12.4); Monocytes Absolute Auto 0.8 X10*3/uL (0.1-1.2); Monocytes Percent Auto 5.8 % (2-11); Neutrophils Absolute Auto 11.2 X10*3/uL (2.0-8.3); Neutrophils Percent Auto 87.4 % (45-73); Platelet Count 317 X10*3/uL (160-400); Red Blood Count 4.53 X10*6/uL (4.60-5.80); Red Cell Distribution Width 13.2 % (11.0-16.0); White Blood Count 12.8 X10*3/uL (4.8-10.8)
[2020-04-21] MEDS: Enoxaparin Sodium 100 MG/ML SYRINGE 90 MG SUBCUT (05:25)
[2020-04-21 05:30] LABS: Anion Gap 17 (12-20); Blood Urea Nitrogen 34 mg/dL (9-16); Calcium 8.6 mg/dL (8.4-10.2); Carbon Dioxide 24 mmol/L (22-29); Chloride 102 mmol/L (96-108); Creatinine Clr Calc Pharmacy 56.5; Estimated Glomerular Filt Rate 50; Magnesium 1.8 mg/dL (1.6-2.6); Potassium 3.8 mmol/L (3.3-5.1); Sodium 139 mmol/L (135-145)
[2020-04-21 06:00] VITALS: BMI 30.2
[2020-04-21 06:35] LABS: Glucose Fasting 111 mg/dL (60-99)
[2020-04-21 08:00] VITALS: BP 142/82; PULSE 62; RESP 20; TEMP 37; O2SAT 97
[2020-04-21 08:08] LABS: Glucose, Whole Blood 113 mg/dL (60-115)
[2020-04-21 08:28] VITALS: BP 142/82; PULSE 62
[2020-04-21] MEDS: Metoprolol Succinate ER 25 MG TAB.ER.24H PO (08:28)
[2020-04-21] MEDS: 0.9 % Sodium Chloride Flush 3 ML SYRINGE IVFLUSH (08:28)
[2020-04-21] MEDS: Aspirin 81 MG TAB.CHEW PO (08:28)
[2020-04-21] MEDS: Furosemide 40 MG/4 ML VIAL IVPUSH (08:28)
--- NOTE | 2020-04-21 10:20 | MHC.CM.PN ---
MALE 69 DX CHF The Pt has no insurance or PCP. A financial referral was made. Sharda from financial provided medicare phone #. The Patient must call himself to enroll. T/W provided to patient a pen, paper and MEDICARE phone #. He will call this morning. The Patient has not seen a PCP in a few years. He requested Dr Félix Westbrook be his PCP again. They have been contacted. Practice is closed to new Pts. The office is forwarding the request to MD. A call back is expected to case management office, with the final answer. CM will follow.
--- NOTE | 2020-04-21 10:31 | HO.PM.IMPN ---
Subjective Subjective Date of Service: 04/21/20 Interval History: sob Cardiovascular Cardiovascular: Reports no additional cardiovascular complaints Gastrointestinal Gastrointestinal: Reports no additional gastrointestinal complaints Physical Exam Vital Signs: Vital Signs: Last Vital Signs Temp 98.6 F 04/21/20 08:00 Pulse 62 04/21/20 08:28 Resp 20 04/21/20 08:00 BP 142/82 H 04/21/20 08:28 Pulse Ox 97 04/21/20 08:00 Body Mass Index 30.2 General: AO X 3, no acute distress Resp: CTA bilateral CVS: S1,S2,RRR, 2-3+ edema GI: soft, non tender, non distended Neuro: motor grossly intact Psych: appropriate affect Objective Data Current Medications Generic Name Dose Route Start Last Admin Trade Name Freq PRN Reason Stop Dose Admin Acetaminophen 650 mg 04/20/20 01:29 Acetaminophen Supp 650 Mg Supp.Rect [place] Q6H PRN Pain, Mild (Pain Scale 1-3) Albuterol/Ipratropium 3 ml 04/20/20 01:32 Albuterol/Iprat 2.5/0.5mg 3 Ml Ampul.Neb INHALE RQ4H PRN Shortness of Breath/Wheezing Aspirin 81 mg 04/20/20 01:40 04/21/20 08:28 Aspirin 81 Mg Tab.Chew PO 81 mg DAILY [facility] Administration Atorvastatin Calcium 40 mg 04/20/20 21:00 04/20/20 21:38 Atorvastatin Calcium 40 Mg Tablet PO 40 mg BEDTIME [facility] Administration Enoxaparin Sodium 90 mg 04/20/20 03:00 04/21/20 05:25 Enoxaparin Sodium 100 Mg/Ml Syringe SUBCUT 90 mg Q12H [facility] Administration Furosemide 40 mg 04/20/20 08:00 04/21/20 08:28 Furosemide 40 Mg/4 Ml Vial IVPUSH 40 mg BIDWM [facility] Administration Protocol Ceftriaxone Sodium 1 gm/ 50 mls @ 100 mls/hr 04/20/20 22:00 04/20/20 22:22 Sodium Chloride IV Infused Q24H [facility] Infusion Azithromycin 500 mg/ Sodium 250 mls @ 125 mls/hr 04/20/20 23:00 04/21/20 00:56 Chloride IV Infused Q24H [facility] Insulin Human Lispro 0 unit 04/20/20 07:30 04/21/20 08:22 Insulin Lispro 100 Unit/Ml 3 Ml Vial SUBCUT Not Given QIDACHS [facility] Protocol Lisinopril 10 mg 04/20/20 12:00 04/21/20 08:28 Lisinopril 10 Mg Tablet PO 10 mg DAILY [facility] Administration Protocol Lorazepam 1 mg 04/20/20 01:33 Lorazepam 1 Mg Tablet PO 04/24/20 01:32 Q4H PRN Breakthrough alcohol withdrawa Metoprolol Succinate 25 mg 04/20/20 09:00 04/21/20 08:28 Metoprolol Succinate Er 25 Mg Tab.Er.24h PO 25 mg DAILY [facility] Administration Protocol Sodium Chloride 3 ml 04/20/20 08:00 04/21/20 08:28 0.9 % Sodium Chloride Flush 3 Ml Syringe IVFLUSH 3 ml QSHIFT [facility] Administration Zolpidem Tartrate 5 mg 04/20/20 01:29 04/20/20 22:59 Zolpidem Tartrate 5 Mg Tablet PO 5 mg BEDTIME PRN Administration Insomnia Labs CBC & Chem 7: 04/21/20 04:15 04/21/20 04:15 Microbiology Microbiology Results: Microbiology 04/19/20 21:44 Blood - Venous Blood Culture - Preliminary No growth after 24 hours. 04/19/20 20:52 Blood - Venous Blood Culture - Preliminary No growth after 24 hours. Assessment and Plan (1) Congestive heart failure: Status: Acute Assessment and Plan: 69M presented with sob Acute hypoxic respiratory failure secondary to acute on chronic systolic CHF. EF of 10-15% Continue diuresis Started on Toprol 25, lisinopril Would ideally need ischemic workup, however, patient is not interested at this time No evidence of pneumonia DC antibiotics Hypertension Continue Toprol lisinopril Lactic acidosis Due to poor perfusion from CHF No evidence of sepsis Questionable alcohol dependence Monitor CIWA
[2020-04-21 11:11] VITALS: BP 166/91; PULSE 74; RESP 20; TEMP 36.6; O2SAT 98
[2020-04-21 11:29] VITALS: BMI 30.2
[2020-04-21 11:53] LABS: Glucose, Whole Blood 123 mg/dL (60-115)
--- NOTE | 2020-04-21 12:14 | PM.PNCARD ---
Subjective Subjective Date of Service: 04/21/20 Principal diagnosis: NSTEMI, acute on chronic systolic CHF, CMP, hypertensive crisis Interval history: Cardiology follow up for all the above. Seen at 0845. Today he reports that his breathing and leg edema is improving. He has an intermittent cough. No PND, orthopnea. No chest pains, palpitations, lightheadedness. Very concerned about the cost of hospital stay and medical care. Reports not having any insurance at present. Considering leaving AMA. Does not want to go to [facility]. Review of Systems Review of Systems as above Yes all other systems are reviewed and are negative Physical Exam Vital Signs: Last Vital Signs Temp 97.8 F 04/21/20 11:11 Pulse 74 04/21/20 11:11 Resp 20 04/21/20 11:11 BP 166/91 H 04/21/20 11:11 Pulse Ox 98 04/21/20 11:11 Body Mass Index 30.2 Const General: cooperative, no acute distress, alert and awake Orientation/consciousness: patient oriented x3 Neck Other: JVD present, no carotid bruit Resp Effort & Inspection: normal respiratory effort, able to speak in complete sentences and not labored Auscultation: rales (left lower lobe, dim right base), no rhonchi and no wheezes Cardio Jugular venous distension: JVD present Palpation: normal PMI Rate: regular rate Rhythm: regular rhythm Heart sounds: S1 normal heart sound present and S2 normal heart sound present Peripheral pulses: Peripheral pulses 2+ throughout GI Inspection: Yes normal to inspection Neuro General: patient oriented x3 Extrem General: Yes normal to inspection and Yes edema (bilateral lower leg swelling, +1 pitting) Results Labs and Meds Result diagrams: 04/21/20 04:15 04/21/20 04:15 Lab results: Laboratory Results - last 24 hr 04/20/20 04/20/20 04/20/20 13:06 18:20 19:58 WBC RBC Hgb Hct MCV MCH MCHC RDW Plt Count MPV Immature Gran % (Auto) Neut % (Auto) Lymph % (Auto) [place] % (Auto) Eos % (Auto) Baso % (Auto) Lymph # (Auto) [place] # (Auto) Eos # (Auto) Baso # (Auto) Abs Immat Gran (auto) Absolute Neuts (auto) Absolute Nucleated RBC Nucleated RBC % (auto) Sodium Potassium Chloride Carbon Dioxide Anion Gap BUN Creatinine Estim Creat Clear Calc Estimated GFR POC Glucose 135 H 193 H Random Glucose Fasting Glucose Lactic Acid Fup @ 4Hr 2.8 H* Calcium Magnesium 04/21/20 04/21/20 04/21/20 04:15 04:15 08:02 WBC 12.8 H RBC 4.53 L Hgb 13.9 L Hct 40.6 L MCV 89.6 MCH 30.7 MCHC 34.2 RDW 13.2 Plt Count 317 MPV 10.5 Immature Gran % (Auto) 0.6 H Neut % (Auto) 87.4 H Lymph % (Auto) 5.9 L [place] % (Auto) 5.8 Eos % (Auto) 0.2 Baso % (Auto) 0.1 Lymph # (Auto) 0.8 L [place] # (Auto) 0.8 Eos # (Auto) 0.0 Baso # (Auto) 0.0 Abs Immat Gran (auto) 0.08 H Absolute Neuts (auto) 11.2 H Absolute Nucleated RBC 0.000 Nucleated RBC % (auto) 0.0 Sodium 139 Potassium 3.8 Chloride 102 Carbon Dioxide 24 Anion Gap 17 BUN 34 H D Creatinine 1.41 H Estim Creat Clear Calc 56.5 Estimated GFR 50 POC Glucose 113 Random Glucose TNP Fasting Glucose 111 H Lactic Acid Fup @ 4Hr Calcium 8.6 Magnesium 1.8 04/21/20 11:49 WBC RBC Hgb Hct MCV MCH MCHC RDW Plt Count MPV Immature Gran % (Auto) Neut % (Auto) Lymph % (Auto) [place] % (Auto) Eos % (Auto) Baso % (Auto) Lymph # (Auto) [place] # (Auto) Eos # (Auto) Baso # (Auto) Abs Immat Gran (auto) Absolute Neuts (auto) Absolute Nucleated RBC Nucleated RBC % (auto) Sodium Potassium Chloride Carbon Dioxide Anion Gap BUN Creatinine Estim Creat Clear Calc Estimated GFR POC Glucose 123 H Random Glucose Fasting Glucose Lactic Acid Fup @ 4Hr Calcium Magnesium Progress Note: A&P Assessment and plan (1) Congestive heart failure: Status: Acute Assessment and Plan: Admit with sob and evidence of fluid overload. Echo shows EF 10-15%, severe LVH. Prior echo several yrs ago shows EF 35-40%. Pt tells me he has not been taking meds for years. This admit being treated for acute on chronic systolic HF. Diuresing with IV lasix. Lisinopril and Metoprolol added. Fluid balance not accurately checked, pt voiding in bathroom. He reports improved breathing and less edema. On exam still has JVD, rales left base, bilateral lower leg edema. Recomend IV diuresis for at least another day. He is concerned about financial aspect of his care and is considering AMA. Discussed with Dr Berrios who will have financial personal from hospital meet with him. If he does insist on discharge today - then would send home on Lasix 40mg po bid. Continue Lisinopril and Metoprolol. We can arrange for outpt cardiology follow up for further med titration and evaluation. (2) Hypertensive crisis: Status: Acute Assessment and Plan: Hx HTN. Noncompliant with medical care as outpt. Was taking no meds. Echo now as above. I spent 15 min with him going over his cardiac finding and explained in way he can understand. He states he will take meds at home. - He has been started on Lasix, Lisinopril and Metoprolol. Bp this am improving, at 142/82. (3) Cardiomyopathy: Status: Acute Assessment and Plan: Severe As above. Started on Neurohormonal modulation with Lisinopril and metoprolol XL. Needs ischemic eval. Cardiac cath recomended and discussed with him. He declines as he has no health insurance. This will need to be further addressed as outpt (4) Non-STEMI (non-ST elevated myocardial infarction): Status: Acute Assessment and Plan: Trop elevated this admit in setting of uncontrolled HTN. BP up to 212/133 on admit. Now improving with med mgt. No reports of CP. Echo with no reported WMA. Needs cardiac cath when able. Continue aspirin, atorvastatin, Metoprolol Fall Risk Details Current Medications: Current Medications Generic Name Dose Route Start Last Admin Trade Name Freq PRN Reason Stop Dose Admin Acetaminophen 650 mg 04/20/20 01:29 Acetaminophen Supp 650 Mg Supp.Rect GA Q6H PRN Pain, Mild (Pain Scale 1-3) Albuterol/Ipratropium 3 ml 04/20/20 01:32 Albuterol/Iprat 2.5/0.5mg 3 Ml Ampul.Neb INHALE RQ4H PRN Shortness of Breath/Wheezing Aspirin 81 mg 04/20/20 01:40 04/21/20 08:28 Aspirin 81 Mg Tab.Chew PO 81 mg DAILY SMOOTH Administration Atorvastatin Calcium 40 mg 04/20/20 21:00 04/20/20 21:38 Atorvastatin Calcium 40 Mg Tablet PO 40 mg BEDTIME SMOOTH Administration Enoxaparin Sodium 90 mg 04/20/20 03:00 04/21/20 05:25 Enoxaparin Sodium 100 Mg/Ml Syringe SUBCUT 90 mg Q12H SMOOTH Administration Furosemide 40 mg 04/20/20 08:00 04/21/20 08:28 Furosemide 40 Mg/4 Ml Vial IVPUSH 40 mg BIDWM [facility] Administration Protocol Insulin Human Lispro 0 unit 04/20/20 07:30 04/21/20 12:00 Insulin Lispro 100 Unit/Ml 3 Ml Vial SUBCUT Not Given QIDACHS [facility] Protocol Lisinopril 10 mg 04/20/20 12:00 04/21/20 08:28 Lisinopril 10 Mg Tablet PO 10 mg DAILY [facility] Administration Protocol Lorazepam 1 mg 04/20/20 01:33 Lorazepam 1 Mg Tablet PO 04/24/20 01:32 Q4H PRN Breakthrough alcohol withdrawa Metoprolol Succinate 25 mg 04/20/20 09:00 04/21/20 08:28 Metoprolol Succinate Er 25 Mg Tab.Er.24h PO 25 mg DAILY [facility] Administration Protocol Sodium Chloride 3 ml 04/20/20 08:00 04/21/20 08:28 0.9 % Sodium Chloride Flush 3 Ml Syringe IVFLUSH 3 ml QSHIFT [facility] Administration Zolpidem Tartrate 5 mg 04/20/20 01:29 04/20/20 22:59 Zolpidem Tartrate 5 Mg Tablet PO 5 mg BEDTIME PRN Administration Insomnia Time Spent With Patient Time: Total time spent is greater than 50% in coordination of care (as documented) at patient's floor/unit and/or counseling patient: 24 Time with patient: 15 - 24 minutes
--- NOTE | 2020-04-21 14:40 | P.DS_ITS ---
DS: Providers Provider Date of Service: 04/21/20 Date of admission: 04/20/20 01:29 Primary care physician: Félix Camargo MD Consults: 04/20/20 01:31 Consult to Cardiology Stat Consulting Provider: Felix Kidd Reason for consultation: Elevated troponin; CHF DS: Diagnosis Discharge Diagnosis (1) Congestive heart failure: Status: Acute (2) Hypertensive crisis: Status: Acute (3) Cardiomyopathy: Status: Acute (4) Non-STEMI (non-ST elevated myocardial infarction): Status: Acute DS: Medications Discharge Medications Home Medications: Home Medications Medication Instructions Recorded Confirmed No Known Home Meds 04/19/20 04/19/20 DS: Summary Hospital Course Hospital Course: Patient was admitted for acute on chronic systolic CHF and NSTEMI. He was given Lovenox, aspirin, statin, beta-katty, lisinopril. He was diuresed with IV Lasix. Echocardiogram revealed an EF 10-15%. He was seen by Cardiology recommended transfer for cardiac catheterization and to continue IV diuresis. Patient decided to leave against medical advice. He is aware of the risks of doing so including . He will follow up outpatient with Cardiology and continue on aspirin, Lipitor, Toprol, lisinopril, Lasix. Time Spent with Patient Time attestation: Total time spent providing and/or coordinating discharge services: Discharge coordination time: Greater than 30 minutes Physical Exam Vital Signs: Vital Signs: Last Vital Signs Temp 97.8 F 04/21/20 11:11 Pulse 74 04/21/20 11:11 Resp 20 04/21/20 11:11 BP 166/91 H 04/21/20 11:11 Pulse Ox 98 04/21/20 11:11 Body Mass Index 30.2 General: AO X 3, no acute distress Resp: CTA bilateral CVS: S1,S2,RRR, 2-3+edema GI: soft, non tender, non distended Neuro: motor grossly intact Psych: appropriate affect DS: Data Data Completed and Pending Labs on day of discharge: Laboratory Results - last 24 hr 04/20/20 04/20/20 04/21/20 18:20 19:58 04:15 WBC RBC Hgb Hct MCV MCH MCHC RDW Plt Count MPV Immature Gran % (Auto) Neut % (Auto) Lymph % (Auto) [place] % (Auto) Eos % (Auto) Baso % (Auto) Lymph # (Auto) [place] # (Auto) Eos # (Auto) Baso # (Auto) Abs Immat Gran (auto) Absolute Neuts (auto) Absolute Nucleated RBC Nucleated RBC % (auto) Sodium 139 Potassium 3.8 Chloride 102 Carbon Dioxide 24 Anion Gap 17 BUN 34 H D Creatinine 1.41 H Estim Creat Clear Calc 56.5 Estimated GFR 50 POC Glucose 135 H 193 H Random Glucose TNP Fasting Glucose 111 H Calcium 8.6 Magnesium 1.8 04/21/20 04/21/20 04/21/20 04:15 08:02 11:49 WBC 12.8 H RBC 4.53 L Hgb 13.9 L Hct 40.6 L MCV 89.6 MCH 30.7 MCHC 34.2 RDW 13.2 Plt Count 317 MPV 10.5 Immature Gran % (Auto) 0.6 H Neut % (Auto) 87.4 H Lymph % (Auto) 5.9 L [place] % (Auto) 5.8 Eos % (Auto) 0.2 Baso % (Auto) 0.1 Lymph # (Auto) 0.8 L [place] # (Auto) 0.8 Eos # (Auto) 0.0 Baso # (Auto) 0.0 Abs Immat Gran (auto) 0.08 H Absolute Neuts (auto) 11.2 H Absolute Nucleated RBC 0.000 Nucleated RBC % (auto) 0.0 Sodium Potassium Chloride Carbon Dioxide Anion Gap BUN Creatinine Estim Creat Clear Calc Estimated GFR POC Glucose 113 123 H Random Glucose Fasting Glucose Calcium Magnesium Preliminary micro results at discharge 04/19/20 21:44 Blood Culture - Preliminary Blood - Venous No growth after 24 hours. 04/19/20 20:52 Blood Culture - Preliminary Blood - Venous No growth after 24 hours. Discharge Plan Discharge Patient Disposition: Left Against Medical Advice Referrals: Félix Camargo MD [Primary Care Provider] - Discharge Medications: New metoprolol succinate 25 mg Tablet Extended Release 24 Hr 25 mg PO DAILY Qty: 90 RF: 0 aspirin 81 mg Tablet,Chewable 81 mg PO DAILY Qty: 90 RF: 0 atorvastatin 40 mg Tablet 40 mg PO BEDTIME Qty: 90 RF: 0 lisinopril 10 mg Tablet 10 mg PO DAILY Qty: 90 RF: 0 furosemide [Lasix] 40 mg tablet 40 mg PO DAILY Qty: 90 RF: 0 No Action No Known Home Meds RF: 0 Discharge Orders: Discharge Order (Routine); Ordered 04/21/20 Ordered By: Nestor Berrios Diet: advance to usual diet Activity on Discharge: As tolerated Care Plan Goals: manage chf Health Concerns: chf Plan of Treatment: start meds as prescribed, obtain insuragnce, follow up with cardio
--- NOTE | 2020-04-21 15:03 | PC.NURSE ---
Patient leaving AMA due to lack of insurance coverage. Pt spoke with Sharda from financial services who gave patient detailed instructions on the necessary process for him to obtain insurance. Pt prescribed medications by MD to treat current health problems in the meantime.
--- NOTE | 2020-04-21 15:11 | MHC.CM.PN ---
DP Pt left AMA. Sharda from [facility] was able to provide insurance. The Pt has been educated on insurance and enrollment. [facility] insurance enrollment thru the [facility] is to be applied for, after medicare officially denies. Pt verbalized understanding of all information provided.
== END 2020-04-21 15:36 | disposition left against medical advice (07) | DRG 280 ==
LOC: HO.ED 04-20 01:05 → HO.EDOVER 04-20 02:39 → HO.IMC 04-20 15:42
PROVIDERS: Admitting Provider Hospitalist; Emergency Provider Internal Medicine; Visit Provider Internal Medicine
DX: I11.0 Hypertensive heart disease with heart failure (principal); J96.01 Acute respiratory failure with hypoxia; I21.4 Non-ST elevation (NSTEMI) myocardial infarction; J18.9 Pneumonia, unspecified organism; N17.9 Acute kidney failure, unspecified; J44.0 Chronic obstructive pulmonary disease with (acute) lower respiratory infection; E87.2 Acidosis; I50.23 Acute on chronic systolic (congestive) heart failure; I42.9 Cardiomyopathy, unspecified; E78.5 Hyperlipidemia, unspecified; Z85.51 Personal history of malignant neoplasm of bladder; F17.210 Nicotine dependence, cigarettes, uncomplicated; I16.0 Hypertensive urgency; Z71.6 Tobacco abuse counseling; Z20.822 Contact with and (suspected) exposure to COVID-19; Z91.14 Patient's other noncompliance with medication regimen; Z79.82 Long term (current) use of aspirin; Z79.899 Other long term (current) drug therapy
CPT/HCPCS: 36415; 71045; 80048; 80076; 82803; 82947; 83036; 83605; 83735; 83880; 84145; 84484; 85025; 85379; 85610; 85730; 87040; 87635; 93005; 93306; 94640; 94660; 96365; 96366; 96367; 96375; 96376; 99285; J0456; J0696; J1100; J1650; J1940

== ENCOUNTER 2022-11-22 20:30 | Emergency (ER) | payer OTHER, SELFPAY ==
--- NOTE | 2022-11-22 | ECG_ITS ---
Test Reason : FALL Blood Pressure : / mmHG Vent. Rate : 093 BPM Atrial Rate : 093 BPM P-R Int : 220 ms QRS Dur : 136 ms QT Int : 410 ms P-R-T Axes : 065 -13 103 degrees QTc Int : 509 ms Sinus rhythm with 1st degree A-V block Non-specific intra-ventricular conduction block T wave abnormality, consider lateral ischemia Abnormal ECG When compared with ECG of 20-APR-2020 00:17, GA interval has increased QRS voltage has decreased Nonspecific T wave abnormality, improved in Inferior leads Referred By: Generic ED Physician Electronically Signed By:STAN HEREDIA
--- NOTE | ~2022-11-22 | XR_ITS ---
EXAMINATION: XR CHEST CLINICAL INFORMATION: Right IJ placement COMPARISON: CT from the same day TECHNIQUE: Frontal view of the chest was obtained. FINDINGS: Right IJ central line tip lies in the region of the distal SVC. Lung volumes are symmetric. No focal consolidation is seen. No evidence of pneumothorax. Trace right pleural effusion on recent CT is not adequately demonstrated radiographically. Cardiac silhouette appears at the upper limits of normal in size. Calcification is present at the aortic arch. Lateral left rib and T8 fractures are better demonstrated on recent CT. XR/XR chest 1V IMPRESSION: 1. Right IJ central line tip in the region of the distal SVC. 2. Trace right pleural effusion, T8 fracture, and left rib fractures identified on recent CT are not as well demonstrated radiographically.
--- NOTE | ~2022-11-22 | CT_ITS ---
EXAMINATION: CT CHEST, ABDOMEN AND PELVIS WITHOUT CONTRAST CLINICAL INFORMATION: Hypertensive, rule out fracture and pneumonia COMPARISON: 11/23/2020 TECHNIQUE: Multidetector volumetric imaging was performed from the thoracic inlet through the pubic symphysis. Sagittal and coronal reformatted images were obtained on the technologist's workstation. Axial MIP volume rendering provided. This CT examination was performed using dose optimization techniques as appropriate, variously including the following: *Automated exposure control *Adjustment of mA and/or kV according to patient size (this includes techniques or standardized protocols for targeted exams where dose is matched to indication/reason for exam; i.e. extremities or head) *Use of iterative reconstruction technique DLP: 1462 mGy-cm FINDINGS: CHEST: Lungs: Limited detailed evaluation of the lung parenchyma due to respiratory motion artifact. Subsegmental atelectasis is present towards the bilateral lung bases. No additional consolidation. Mediastinum: Visualized thyroid gland is grossly unremarkable. There are subcentimeter mediastinal lymph nodes within the range of normal variation. Cardiac size is within normal limits; no pericardial effusion. Scattered calcifications along the aorta. Coronary Artery Calcification: Present Pleura: No pneumothorax. Small right pleural effusion. Chest Wall/Axilla: Unremarkable. ABDOMEN/PELVIS: Limited evaluation some regions due to motion artifact. Liver, Gallbladder, Biliary Tree: Liver is grossly unremarkable, without intrahepatic biliary ductal dilatation. Cholelithiasis is noted. Pancreas: Mildly atrophic. Spleen: Grossly unremarkable. Adrenal Glands: Grossly unremarkable. Kidneys and Ureters: No hydronephrosis or obstructing calculus bilaterally. Nonspecific bilateral perinephric stranding. Bladder: Unremarkable. Gastrointestinal Tract: No evidence of bowel obstruction or significant wall thickening. Colonic diverticulosis is noted. No free fluid or free air is seen. Abdominal Wall: Bilateral fat-containing inguinal hernias. Lymphovascular Structures: Lymph nodes: Normal. Vascular: Moderate atherosclerotic calcification. Pelvic Viscera: Unremarkable. OSSEOUS STRUCTURES: Lateral left fifth through eighth rib fractures with mild displacement. There is an oblique fracture through the T8 vertebral body with involvement of the anterior cortex and posterior aspect of the superior endplate which comes in close approximation to the posterior cortex. There is mild distraction across the fracture line anteriorly and slight loss of vertebral body height posteriorly. Mild surrounding hematoma. Possible fracture at the head of the right eighth rib. Multilevel degenerative changes in the spine. Partial loss of height of L4 appears chronic. CT/CT abdomen pelvis wo IV con IMPRESSION: 1. T8 vertebral body fracture as described above. 2. Lateral left fifth through eighth rib fractures with mild displacement. 3. Possible fracture at the head of the right eighth rib. 4. Small right pleural effusion, which could represent hemothorax in setting of trauma. No pneumothorax. 5. Cholelithiasis. 6. Limited evaluation of some regions in the chest, abdomen, and pelvis due to motion artifact and lack of intravenous contrast.
--- NOTE | ~2022-11-22 | XR_ITS ---
EXAMINATION: XR CHEST CLINICAL INFORMATION: Fall? COMPARISON: 04/19/2020 TECHNIQUE: Frontal view of the chest was obtained. FINDINGS: Left basilar opacity could represent an area of atelectasis or infiltrate. Otherwise left lung is comparable to previous. The right lung is also comparable. The cardiac silhouette is within normal limits. There is no pneumothorax. Rib fracture of the lateral seventh rib cannot be excluded XR/XR chest 1V IMPRESSION: Lateral basilar opacity may represent atelectasis or infiltrate or focal fluid. Rib fracture of the adjacent left seventh rib could not be excluded and would need to be considered. Also possible fracture of the fifth rib
--- NOTE | ~2022-11-22 | CT_ITS ---
EXAMINATION: NONCONTRAST HEAD CT NONCONTRAST CERVICAL SPINE CT INDICATION INFORMATION: Fall COMPARISON: None TECHNIQUE: Separate noncontrast CT examinations of the head and cervical spine were performed. Coronal head CT images and coronal and sagittal cervical spine images were created at the technologist workstation. DLP: 1430 mGy-cm DOSE LOWERING TECHNIQUES: This CT examination was performed using dose optimization techniques as appropriate, variously including the following: - Automated exposure control - Adjustment of mA and/or kV according to patient size (this includes techniques or standardized protocols for targeted exams were dose is matched to indication/reason for exam; i.e. extremities or head) - Use of iterative reconstruction technique FINDINGS: Head: Limited assessment due to motion artifact. There is no appreciable acute intracranial hemorrhage or territorial infarction. No abnormal mass-effect or midline shift is seen. Lea to white matter differentiation is well preserved. No extra-axial fluid collections are identified. The ventricles are normal in size. The osseous structures and soft tissues are normal. The mastoid air cells and visualized portions of the paranasal sinuses are well-aerated. Cervical spine: Limited assessment due to motion artifact. There is anatomic alignment of the vertebral bodies and posterior elements. Vertebral body heights are maintained. There is mild disc space narrowing and multilevel endplate osteophyte formation. Relatively mild multilevel facet arthropathy. No appreciable acute fracture. No prevertebral soft tissue swelling. Visualized portions of the lung apices are unremarkable. The thyroid gland is unremarkable. CT/CT cervical spine wo IV con IMPRESSION: HEAD: Limited assessment due to motion artifact. No acute findings identified. CERVICAL SPINE: Limited assessment due to motion artifact. No appreciable acute findings.
[2022-11-22 20:55] VITALS: BP 68/35; PULSE 96; RESP 18; TEMP 36.9; O2SAT 93; BMI 34.1
[2022-11-22 21:29] LABS: MANUAL DIFF FLAG NO
[2022-11-22 21:31] LABS: Basophils Percent Auto 0.3 % (0-2); Eosinophils Absolute Auto 0.1 X10*3/uL (0.0-0.4); Eosinophils Percent Auto 1.4 % (0-4); Hematocrit 21.7 % (42.0-52.0); Hemoglobin 7.1 g/dl (14.0-18.0); Imm Gran Abs Auto 0.03 X10*3/uL (0.00-0.03); Imm Gran Pct Auto 0.5 % (0.0-0.4); Lymphocytes Absolute Auto 0.4 X10*3/uL (1.2-4.9); Lymphocytes Percent Auto 5.8 % (20-40); Mean Corpuscular HGB Conc 32.7 g/dl (31.0-36.0); Mean Corpuscular Hemoglobin 32.6 pg (27.0-33.0); Mean Corpuscular Volume 99.5 fL (80.0-98.0); Mean Platelet Volume 10.3 fL (9.4-12.4); Monocytes Absolute Auto 0.7 X10*3/uL (0.1-1.2); Monocytes Percent Auto 10.7 % (2-11); Neutrophils Absolute Auto 5.2 x10*3/uL (2.0-8.3); Neutrophils Percent Auto 81.3 % (45-73); Platelet Count 105 X10*3/uL (160-400); Red Blood Count 2.18 X10*6/uL (4.60-5.80); White Blood Count 6.3 X10*3/uL (4.8-10.8)
--- NOTE | 2022-11-22 21:36 | ED_ITS ---
HPI - Fall General Chief Complaint: Fall Stated Complaint: SOB, fell on sat. ems question Broken ribs? Time Seen by Provider: 11/22/22 21:25 Source: patient and RN notes reviewed Mode of arrival: EMS Limitations: other (Hard of hearing) History of Present Illness HPI Narrative: Patient comes to the emergency room via ambulance from home. According to EMS, they received a phone call from ora fall, rib pain and shortness of breath. Patient did not call the ambulance and he or the EMS crew do not know who called the ambulance. Patient states that he fell 4 days ago, patient was arranging wood in his backyard, tripped and landed on the right side of the chest. Patient states that he does not know if he lost consciousness. Denies being on blood thinners. At this time, patient complaining of cough. EMS reported that when they arrived, patient's blood pressure was 68/35. Related Data Previous Rx's Medication Instructions Recorded aspirin 81 mg chewable tablet 81 mg PO DAILY #90 tabs 04/21/20 atorvastatin 40 mg tablet 40 mg PO BEDTIME #90 tabs 04/21/20 furosemide 40 mg tablet (Lasix) 40 mg PO DAILY #90 tabs 04/21/20 lisinopril 10 mg tablet 10 mg PO DAILY #90 tabs 04/21/20 metoprolol succinate 25 mg 25 mg PO DAILY #90 tabs 04/21/20 tablet,extended release 24 hr Allergies Allergy/AdvReac Type Severity Reaction Status Date / Time No Known Allergies Allergy Unverified 11/20/19 16:15 Review of Systems 2 Review of Systems: Constitutional : No Weight loss, No Fever, No Chills, No Night Sweats, No Fatigue, No Malaise ENT/Mouth : No Hearing loss, No Ear Pain, No Nasal Congestion, No Sinus Pain, No Hoarseness, No sore throat, No Rhinorrhea, No Swallowing Difficulty Eyes: No Eye Pain, No Swelling, No Redness, No Foreign Body, No Discharge, No Vision Changes Cardiovascular : Complaining of chest pain only with coughing, mild shortness of breath, rib pain Respiratory : Complaining of cough with sputum production, no wheezing Gastrointestinal : No Nausea, No Vomiting, No Diarrhea, No Constipation, No abdominal Pain, No Hematochezia, No Melena Genitourinary : no irregular bleeding, No Dysuria, No Urinary Frequency, No Hematuria, No Urinary Incontinence, No Urgency, No Flank Pain, No Urinary Flow Changes, No Hesitancy Musculoskeletal : Complaining of right-sided rib pain, No Myalgias, No Joint Swelling Skin : No Skin Lesions, No rash Neuro : No Weakness, No Numbness, No Paresthesias, No Loss of Consciousness, No Dizziness, No Headache Psych : No Anxiety/Panic, No Depression, No SI/HI/AH/VH, No Social Issues, Heme/Lymph: No Bruising, No Bleeding,No Lymphadenopathy Endocrine : No Polyuria, No Polydipsia, No Temperature Intolerance [facility] Past Medical History Medical History (Updated 11/23/22 @ 03:24 by Yaz Le MD) Cardiomyopathy Non-STEMI (non-ST elevated myocardial infarction) Hypertensive crisis Bladder cancer CHF (congestive heart failure) Social History Social History (Updated 04/21/20 @ 10:46 by Nestor Berrios MD) Household Members: None Housing: Apartment Do you presently have visiting nurse or other home services: No Alcohol intake: current Advance Directives: No Advance Directives Information Provided: No service: No Current occupational status: retired Physical Exam 2 Vital Signs: Vital Signs: Last Vital Signs Temp 98 F 11/23/22 02:19 Pulse 97 11/23/22 03:18 Resp 18 11/23/22 02:19 BP 103/53 L 11/23/22 03:18 Pulse Ox 93 11/23/22 02:15 O2 Del Method Room Air 11/23/22 00:47 BMI result Body Mass Index 34.1 HEENT: Other: Appearance: Alert. Oriented X3. No acute distress. Eyes: Pupils equal, round and reactive to light. ENT: Pharynx normal. Very hard of hearing Neck: Normal inspection. Neck supple. No lymph nodes noted. No crepitus CVS: Normal heart rate and rhythm. Pulses normal. Normal S1 and S2 Respiratory: No respiratory distress. Bilateral rales, No Wheezing. No rales Abdomen: Soft and nontender. No rigidity. No distention. Musculoskeletal: No significant pain to palpation on the ribs bilaterally Skin: Skin warm and dry. Normal skin color. Normal skin turgor. Extremities: +2 pitting edema bilaterally, No Lacerations. No Rash Neuro: Oriented X 3. No motor deficit. No sensory deficit. Moving all extremities. No slurred speech. CN 2 through 12 grossly intact Psych: calm, cooperative, normal affect Course Course Course Narrative: -all of patient's labs and imaging pending -on arrival, it was noted that patient is hypotensive, blood pressure 68/35, patient receiving IV fluids -per pharmacy, patient takes carvedilol 6.25 mg b.i.d., Entresto 49-51 mg b.i.d., spironolactone 25 mg q.i.d. and p.r.n. torsemide 20 mg q.d. Medications Administered Generic Name Dose Route Start Last Admin Trade Name Freq PRN Reason Stop Dose Admin Norepinephrine Bitartrate 8 mg in 250 mls @ 0 mls/hr 11/23/22 02:30 11/23/22 03:18 Levophed IV 0.1 mcg/kg/min .Q0M SMOOTH 19.09 mls/hr Titration Protocol Per Protocol Discontinued Medications Generic Name Dose Route Start Last Admin Trade Name Freq PRN Reason Stop Dose Admin Fentanyl 25 mcg 11/22/22 21:50 11/22/22 22:42 Fentanyl Citrate/Pf 100 Mcg/2 Ml Vial IVPUSH 11/22/22 21:51 25 mcg ONCE ONE Administration Protocol Fentanyl 50 mcg 11/22/22 23:21 11/22/22 23:28 Fentanyl Citrate/Pf 100 Mcg/2 Ml Vial IVPUSH 11/22/22 23:22 50 mcg ONCE ONE Administration Protocol Sodium Chloride 1,000 mls @ 999 mls/hr 11/22/22 21:34 11/22/22 22:24 Ns IVCONT 11/22/22 22:34 Infused .Q1H1M ONE Infusion Piperacillin Sod/Tazobactam 50 mls @ 100 mls/hr 11/22/22 23:15 11/23/22 03:20 Sod 3.375 gm/ Sodium Chloride IV 11/22/22 23:44 Infused ONCE ONE Infusion Albumin Human 100 mls @ 100 mls/hr 11/22/22 23:30 11/23/22 03:31 Kedbumin 25 % IV 11/23/22 01:29 Infused Q1H SMOOTH Infusion Ketamine HCl 200 mg 11/22/22 23:57 11/23/22 00:13 Ketamine Hcl 500 Mg/5 Ml Vial IM 11/22/22 23:58 200 mg ONCE ONE Administration Lorazepam 2 mg 11/23/22 02:50 11/23/22 03:14 Lorazepam 2 Mg/Ml Vial IVPUSH 11/23/22 02:51 2 mg ONCE ONE Administration Potassium Chloride 40 meq 11/22/22 23:14 11/23/22 03:27 Potassium Chloride Packet 20 Meq Packet PO 11/22/22 23:15 Not Given ONCE ONE Medical Decision Making Medical Decision Making [facility] Narrative: -at this time, 23:15, patient's x-ray resulted. Patient may have fractures versus infiltrate. Patient will be receiving IV antibiotics, patient already received 1 L, patient will be given fluids based on ideal weight of 64 kg. Patient is obese. The 2 L will be given slow, patient has an ejection fraction of 10%. Also, patient's hemoglobin is 7, patient is not on blood thinners, will discussed with the patient -my interpretation of chest x-ray at 11:20, possible rib fractures and infiltrates. As mentioned above, patient being given IV fluids and antibiotics. To confirm, we will go ahead and get a CT scan of chest. -patient also has low albumin, patient will be getting albumin. -I discussed with the patient the risks versus benefits of a blood transfusion, patient agreeable to receive blood, patient signed consent. That will be transfused as low as possible due to patient's history of CHF -patient agreeable to a stool guaiac exam -patient very uncomfortable for CT scan. Patient refused scan due to pain. Patient's blood pressure still on the lower side. Fentanyl not working well. I discussed with the patient that we can try IM ketamine, which will help for pain and also will make the patient's somnolence/sedated. Patient agreeable to get IM ketamine. -with patient's permission, I spoke with patient's significant other. Patient's girlfriend states that she knows that Mr. Tompkins can be very difficult patient and usually he signed against medical advice. So far, patient has requested to sign against medical advice several times but after prolonged conversations with the patient, patient agreeable to stay and slowly were making some progress. -patient received 200 mg of IM ketamine IM, patient in CT scan, vital stable, scans pending -I was present when the patient was getting his CT scans done. Patient was spontaneously moving even though he had ketamine. No obvious intracranial bleed or neck fracture, study report will be limited due to motion artifact -he does report, no acute intracranial abnormality or C-spine abnormality. Patient does have for rib fractures, 5 through 8 minimally displaced on the left, T8 vertebral body fracture with involvement of the anterior cortex and posterior aspect of the superior endplate with a mild surrounding hematoma, patient may have a small right-sided pleural effusion versus hemothorax -the right-sided effusion/hemothorax, is too small, chest tube not indicated at this time, patient breathing comfortably, oxygen saturation 94% on room air. -so far, patient has received 2 L of normal saline, patient is currently being transfused, 1st unit running, potassium chloride 20 mg, patient is on Levophed, albumin. Earlier today patient received a total of 75 mcg of fentanyl, Zosyn since the chest x-ray showed possible pneumonia, ketamine 200 mg IM -current vitals, blood pressure 94/43, pulse 97, respirations 18, oxygen saturation 94% on room air -I discussed the patient with Dr. Lynn from [facility] trauma team, patient being transferred. -patient is awake, alert, patient agreeable to transfer. -central line placement was done by ICU nurse practitioner Krystal -chest x-ray: No pneumothorax, good placement -per patient's request, I spoke with his significant other, I spoke with Elaine and inform her of all the above mentioned, she is aware that patient will be going to [facility] likely to the intensive care unit Differential Diagnosis Differential Diagnoses: The differential diagnosis associated with the presentation includes (Intracranial bleed, cervical spine fracture, rib fracture versus contusion, hemothorax, GI bleed) Admission/Observation Consideration of admission/observation: Escalation of care including admission/observation considered Consult Healthcare Provider Management of the patient was discussed with: Siderographer Lab Data [facility] Lab Attestation statement: I reviewed the patient's lab results. 11/22/22 21:23 11/22/22 21:23 Labs: Lab Results 11/22/22 11/22/22 11/22/22 Range/Units 21:23 22:30 22:40 WBC 6.3 (4.8-10.8) X10*3/uL RBC 2.18 L (4.60-5.80) X10*6/uL Hgb 7.1 L (14.0-18.0) g/dl Hct 21.7 L (42.0-52.0) % MCV 99.5 H (80.0-98.0) fL MCH 32.6 (27.0-33.0) pg MCHC 32.7 (31.0-36.0) g/dl RDW 15.0 (11.0-16.0) % Plt Count 105 L (160-400) X10*3/uL MPV 10.3 (9.4-12.4) fL Immature Gran % (Auto) 0.5 H (0.0-0.4) % Neut % (Auto) 81.3 H (45-73) % Lymph % (Auto) 5.8 L (20-40) % [place] % (Auto) 10.7 (2-11) % Eos % (Auto) 1.4 (0-4) % Baso % (Auto) 0.3 (0-2) % Lymph # (Auto) 0.4 L (1.2-4.9) X10*3/uL [place] # (Auto) 0.7 (0.1-1.2) X10*3/uL Eos # (Auto) 0.1 (0.0-0.4) X10*3/uL Baso # (Auto) 0.0 (0.0-0.2) X10*3/uL Abs Immat Gran (auto) 0.03 (0.00-0.03) X10*3/uL Absolute Neuts (auto) 5.2 (2.0-8.3) x10*3/uL Absolute Nucleated RBC 0.000 (0.0-0.012) X10*3/uL Nucleated RBC % (auto) 0.0 (0.0-0.2) /100WBC PT 12.5 (11.1-13.3) SEC INR 1.0 (0.9-1.1) VBG pH 7.24 L (7.32-7.43) VBG pCO2 27 mmHg VBG pO2 43 mmHg VBG HCO3 12 L (22-26) mmol/L VBG O2 Saturation 72.0 % VBG Base Excess -13.5 mmol/L Sodium 141 (135-145) mmol/L Potassium 3.2 L (3.3-5.1) mmol/L Chloride 120 H (96-108) mmol/L Carbon Dioxide 9 L* D (22-29) mmol/L Anion Gap 15 (12-20) BUN 69 H (9-16) mg/dL Creatinine 4.84 H* (0.5-1.4) mg/dL Estim Creat Clear Calc 16.4 Estimated GFR 12 Random Glucose 68 (60-115) mg/dL Lactic Acid 1.0 (0.5-2.0) mmol/L Calcium 5.4 L* D (8.4-10.2) mg/dL Magnesium 2.3 (1.6-2.6) mg/dL Total Bilirubin 0.4 (0.0-1.0) mg/dL AST 8 (5-37) U/L ALT 8 (0-40) U/L Alkaline Phosphatase 64 (39-117) U/L Ammonia 24 (13-55) umol/L Total Creatine Kinase 122 (38-174) U/L Troponin I High Sens 11.8 (<3.5-35.0) ng/L B-Natriuretic Peptide 58 (<100) pg/mL Total Protein 4.4 L (6.5-8.0) g/dL Albumin 2.2 L (3.5-5.0) g/dL Lipase 8 (8-78) U/L TSH 0.53 (0.32-4.0) uIU/mL Stool Occult Blood (NEGATIVE) Ethyl Alcohol < 10 mg/dL COVID-19 (GIOVANNY) Negative (Negative) COVID-19 Clin Com See Note Influenza Type A (THEODORA) Negative (Negative) Influenza Type B (THEODORA) Negative (Negative) Influenza A & B Note See Note Blood Type Antibody Screen Crossmatch 11/23/22 11/23/22 Range/Units 00:22 00:27 WBC (4.8-10.8) X10*3/uL RBC (4.60-5.80) X10*6/uL Hgb (14.0-18.0) g/dl Hct (42.0-52.0) % MCV (80.0-98.0) fL MCH (27.0-33.0) pg MCHC (31.0-36.0) g/dl RDW (11.0-16.0) % Plt Count (160-400) X10*3/uL MPV (9.4-12.4) fL Immature Gran % (Auto) (0.0-0.4) % Neut % (Auto) (45-73) % Lymph % (Auto) (20-40) % [place] % (Auto) (2-11) % Eos % (Auto) (0-4) % Baso % (Auto) (0-2) % Lymph # (Auto) (1.2-4.9) X10*3/uL [place] # (Auto) (0.1-1.2) X10*3/uL Eos # (Auto) (0.0-0.4) X10*3/uL Baso # (Auto) (0.0-0.2) X10*3/uL Abs Immat Gran (auto) (0.00-0.03) X10*3/uL Absolute Neuts (auto) (2.0-8.3) x10*3/uL Absolute Nucleated RBC (0.0-0.012) X10*3/uL Nucleated RBC % (auto) (0.0-0.2) /100WBC PT (11.1-13.3) SEC INR (0.9-1.1) VBG pH (7.32-7.43) VBG pCO2 mmHg VBG pO2 mmHg VBG HCO3 (22-26) mmol/L VBG O2 Saturation % VBG Base Excess mmol/L Sodium (135-145) mmol/L Potassium (3.3-5.1) mmol/L Chloride (96-108) mmol/L Carbon Dioxide (22-29) mmol/L Anion Gap (12-20) BUN (9-16) mg/dL Creatinine (0.5-1.4) mg/dL Estim Creat Clear Calc Estimated GFR Random Glucose (60-115) mg/dL Lactic Acid (0.5-2.0) mmol/L Calcium (8.4-10.2) mg/dL Magnesium (1.6-2.6) mg/dL Total Bilirubin (0.0-1.0) mg/dL AST (5-37) U/L ALT (0-40) U/L Alkaline Phosphatase (39-117) U/L Ammonia (13-55) umol/L Total Creatine Kinase (38-174) U/L Troponin I High Sens (<3.5-35.0) ng/L B-Natriuretic Peptide (<100) pg/mL Total Protein (6.5-8.0) g/dL Albumin (3.5-5.0) g/dL Lipase (8-78) U/L TSH (0.32-4.0) uIU/mL Stool Occult Blood POSITIVE (NEGATIVE) Ethyl Alcohol mg/dL COVID-19 (GIOVANNY) (Negative) COVID-19 Clin Com Influenza Type A (THEODORA) (Negative) Influenza Type B (THEODORA) (Negative) Influenza A & B Note Blood Type A Negative Antibody Screen NEGATIVE Crossmatch See Detail Independent Interpretation I performed an independent interpretation of an: Plain X-Ray and CT Scan Radiology Impression Discussion of test interpretation with radiology: I have reviewed the radiologist's reading. Radiologist Impression: FINDINGS: Head: Limited assessment due to motion artifact. There is no appreciable acute intracranial hemorrhage or territorial infarction. No abnormal mass-effect or midline shift is seen. Lea to white matter differentiation is well preserved. No extra-axial fluid collections are identified. The ventricles are normal in size. The osseous structures and soft tissues are normal. The mastoid air cells and visualized portions of the paranasal sinuses are well-aerated. Cervical spine: Limited assessment due to motion artifact. There is anatomic alignment of the vertebral bodies and posterior elements. Vertebral body heights are maintained. There is mild disc space narrowing and multilevel endplate osteophyte formation. Relatively mild multilevel facet arthropathy. No appreciable acute fracture. No prevertebral soft tissue swelling. Visualized portions of the lung apices are unremarkable. The thyroid gland is unremarkable. CT/CT head/brain wo IV con IMPRESSION: HEAD: Limited assessment due to motion artifact. No acute findings identified. CERVICAL SPINE: Limited assessment due to motion artifact. No appreciable acute findings. CHEST: Lungs: Limited detailed evaluation of the lung parenchyma due to respiratory motion artifact. Subsegmental atelectasis is present towards the bilateral lung bases. No additional consolidation. Mediastinum: Visualized thyroid gland is grossly unremarkable. There are subcentimeter mediastinal lymph nodes within the range of normal variation. Cardiac size is within normal limits; no pericardial effusion. Scattered calcifications along the aorta. Coronary Artery Calcification: Present Pleura: No pneumothorax. Small right pleural effusion. Chest Wall/Axilla: Unremarkable. ABDOMEN/PELVIS: Limited evaluation some regions due to motion artifact. Liver, Gallbladder, Biliary Tree: Liver is grossly unremarkable, without intrahepatic biliary ductal dilatation. Cholelithiasis is noted. Pancreas: Mildly atrophic. Spleen: Grossly unremarkable. Adrenal Glands: Grossly unremarkable. Kidneys and Ureters: No hydronephrosis or obstructing calculus bilaterally. Nonspecific bilateral perinephric stranding. Bladder: Unremarkable. Gastrointestinal Tract: No evidence of bowel obstruction or significant wall thickening. Colonic diverticulosis is noted. No free fluid or free air is seen. Abdominal Wall: Bilateral fat-containing inguinal hernias. Lymphovascular Structures: Lymph nodes: Normal. Vascular: Moderate atherosclerotic calcification. Pelvic Viscera: Unremarkable. OSSEOUS STRUCTURES: Lateral left fifth through eighth rib fractures with mild displacement. There is an oblique fracture through the T8 vertebral body with involvement of the anterior cortex and posterior aspect of the superior endplate which comes in close approximation to the posterior cortex. There is mild distraction across the fracture line anteriorly and slight loss of vertebral body height posteriorly. Mild surrounding hematoma. Possible fracture at the head of the right eighth rib. Multilevel degenerative changes in the spine. Partial loss of height of L4 appears chronic. CT/CT chest wo IV con IMPRESSION: 1. T8 vertebral body fracture as described above. 2. Lateral left fifth through eighth rib fractures with mild displacement. 3. Possible fracture at the head of the right eighth rib. 4. Small right pleural effusion, which could represent hemothorax in setting of trauma. No pneumothorax. 5. Cholelithiasis. 6. Limited evaluation of some regions in the chest, abdomen, and pelvis due to motion artifact and lack of intravenous contrast. Critical Care Time Critical Care Time Critical Care Time: Yes Total Critical Care Time: 120 Attestation: I have personally provided critical care time. Time includes review of lab data, radiology results, discussion with consultants, and monitoring for potential decompensation. Intervention performed as documented. Discharge Plan Discharge Clinical Impression: Acute hypotension, Multiple fractures of ribs, Closed T8 spinal fracture, Anemia, GI bleed, NADYA (acute kidney injury) Patient Disposition: er [facility] Transfer Details: [facility] ED Prescriptions: No Action atorvastatin 40 mg Tablet 40 mg PO BEDTIME Qty: 90 0RF lisinopril 10 mg Tablet 10 mg PO DAILY Qty: 90 0RF Protocol: Hold for SBP< HOLD for SBP < : 90 aspirin 81 mg Tablet,Chewable 81 mg PO DAILY Qty: 90 0RF metoprolol succinate 25 mg Tablet Extended Release 24 Hr 25 mg PO DAILY Qty: 90 0RF Protocol: Hold for SBP/HR < HOLD for SBP < : 90 HOLD for HR < : 60 furosemide [Lasix] 40 mg tablet 40 mg PO DAILY Qty: 90 0RF
[2022-11-22] MEDS: 0.9 % Sodium Chloride 1,000 ML 999 ML IVCONT (21:45)
[2022-11-22 21:55] LABS: Alanine Aminotransferase 8 U/L (0-40); Albumin Level 2.2 g/dL (3.5-5.0); Alkaline Phosphatase 64 U/L (39-117); Anion Gap 15 (12-20); Aspartate Amino Transferase 8 U/L (5-37); Bilirubin Total 0.4 mg/dL (0.0-1.0); Blood Urea Nitrogen 69 mg/dL (9-16); Calcium 5.4 mg/dL (8.4-10.2); Carbon Dioxide 9 mmol/L (22-29); Chloride 120 mmol/L (96-108); Creatinine Clr Calc Pharmacy 16.4; Estimated Glomerular Filt Rate 12; Glucose Random 68 mg/dL (60-115); Potassium 3.2 mmol/L (3.3-5.1); Sodium 141 mmol/L (135-145); Total Protein 4.4 g/dL (6.5-8.0)
[2022-11-22 22:41] LABS: Troponin-I High Sensitivity 11.8 ng/L (<3.5-35.0)
[2022-11-22] MEDS: fentaNYL citrate/PF 100 MCG/2 ML VIAL 25 MCG IVPUSH (22:42)
[2022-11-22 22:43] VITALS: BP 79/45; PULSE 95; RESP 18; O2SAT 96
[2022-11-22 22:46] LABS: VBG Base Excess -13.5 mmol/L; VBG HCO3 12 mmol/L (22-26); VBG pCO2 27 mmHg; VBG pH 7.24 (7.32-7.43); VBG pO2 43 mmHg
[2022-11-22 22:47] LABS: Venous Blood Gas Refer to POC result
[2022-11-22 22:54] LABS: Prothrombin Time 12.5 SEC (11.1-13.3)
[2022-11-22 22:58] LABS: IDNOW Serial# 9DB6401D; Lipase 8 U/L (8-78); Magnesium 2.3 mg/dL (1.6-2.6)
[2022-11-22 22:59] LABS: Influenza A Negative (Negative); Influenza B2 Negative (Negative)
[2022-11-22 23:01] LABS: Ammonia 24 umol/L (13-55)
[2022-11-22 23:02] LABS: B Type Natriuretic Peptide 58 pg/mL (<100)
[2022-11-22 23:03] LABS: Ethanol < 10 mg/dL
[2022-11-22 23:06] LABS: COVID-19 Test Negative (Negative); IDNOW Serial# 6674DD1D
[2022-11-22 23:19] LABS: TSH reflex Free T4 0.53 uIU/mL (0.32-4.0)
[2022-11-22] MEDS: fentaNYL citrate/PF 100 MCG/2 ML VIAL 50 MCG IVPUSH (23:28)
[2022-11-23] MEDS: Ketamine HCl 500 MG/5 ML VIAL 200 MG IM (00:13)
[2022-11-23 00:32] LABS: OBS Int Ctl Valid YES; OBS1 POSITIVE (NEGATIVE)
[2022-11-23 00:47] VITALS: BP 123/64; PULSE 102; RESP 16; O2SAT 97
[2022-11-23] MEDS: Piperacillin Sodium/Tazobactam 3.375 GM in 0.9 % Sodium Chloride 50 ML IV (01:12)
[2022-11-23] MEDS: Albumin Human 25 % 100 ML IV ×2 (01:16→03:30)
[2022-11-23 02:03] VITALS: BP 100/45; PULSE 103; RESP 19; TEMP 36.7
[2022-11-23 02:15] VITALS: BP 85/37; PULSE 100; RESP 20; TEMP 36.6; O2SAT 93
[2022-11-23 02:19] VITALS: BP 100/45; PULSE 102; RESP 18; TEMP 36.6
[2022-11-23 03:01] VITALS: BP 94/43; PULSE 97
[2022-11-23] MEDS: Norepinephrine Bitartrate/D5W 8 MG/250 ML PLAST..BAG 9.54 MG IV (03:01)
[2022-11-23] MEDS: LORazepam 2 MG/ML VIAL IVPUSH (03:14)
[2022-11-23 03:18] VITALS: BP 103/53; PULSE 97
--- NOTE | 2022-11-23 03:51 | P.PCNCC_ITS ---
Procedures Date of Service Date of Service: 11/23/22 Central Line Placement Right IJ: Central Line Comments: The right neck was widely prepped and draped in full sterile fashion.? Under US? guidance, the right IJ vein was cannulated on the 1st pass of the 18 g thin wall needle, with return of dark, nonpulsatile blood. ? The wire was threaded without incident.? The 16 cm x 7 Green[place]ic triple-lumen CVC was advanced into the vein up to the hub via the Seldinger technique without incident.? There was good blood return x3.? The catheter was sutured x2 and a Biopatch and dry sterile dressing were applied. Postop chest x-ray showed the line in good position with no pneumothorax.? The patient tolerated the procedure well with no complications. Consent for Procedure: Emergent-no informed consent obtained Time out performed: Yes Sterile Technique Used: Yes Patient placed on monitor/pulse ox: Yes prep: mask, gown and gloves Central line prep: Chlorhexidine scrub and sterile drapes applied Ultrasound used for placement: Yes Central line lumen inserted: triple Post procedure: sutured in place, good blood return, all ports aspirated, flushed, capped and sterile dressing applied Post procedure x-ray: tip of catheter in good position and no pneumothorax seen Patient tolerated procedure: well and no complications Complications: none
--- NOTE | 2022-11-23 03:51 | MHC.EDTECH ---
call out to [facility] transfer line at 0300 for possible transfer
--- NOTE | 2022-11-23 03:54 | MHC.EDTECH ---
[facility] bed placement called back at [address] requesting to speak [address] Le. [facility] accepted transfer to the care of DR. Lynn ED to ED transfer
--- NOTE | 2022-11-23 03:57 | MHC.EDTECH ---
call out to [facility] at 0315 to book transport for pt transferring to [facility] ed, estimated eta given was [phone]
--- NOTE | 2022-11-28 10:47 | PC.NURSE ---
Addendum: Patient was transferred from our facility on 11/23 and left the department at approximately 0335. At the time of transfer, patient had blood infusing and the plan was to continue this unit upon transfer.
== END 2022-11-23 11:56 | disposition short-term general hospital (02) ==
PROVIDERS: Emergency Provider Emergency Medicine
DX: K92.2 Gastrointestinal hemorrhage, unspecified (principal); I95.9 Hypotension, unspecified; N17.9 Acute kidney failure, unspecified; J90 Pleural effusion, not elsewhere classified; S22.42XA Multiple fractures of ribs, left side, initial encounter for closed fracture; S22.069A Unspecified fracture of T7-T8 vertebra, initial encounter for closed fracture; W01.198A Fall on same level from slipping, tripping and stumbling with subsequent striking against other object, initial encounter; D64.9 Anemia, unspecified; R06.02 Shortness of breath; Z79.899 Other long term (current) drug therapy; Z79.82 Long term (current) use of aspirin; Y93.89 Activity, other specified; Y92.017 Garden or yard in single-family (private) house as the place of occurrence of the external cause; Y99.9 Unspecified external cause status; Z20.822 Contact with and (suspected) exposure to COVID-19
CPT/HCPCS: 36415; 36430; 36556; 70450; 71045; 71250; 72125; 74176; 80053; 80307; 82140; 82272; 82550; 82803; 83605; 83690; 83735; 83880; 84443; 84484; 85025; 85610; 86850; 86900; 86901; 86923; 87040; 87502; 87635; 93005; 96361; 96365; 96366; 96367; 96375; 96376; 99285; J2060; J2543; J3010; P9016; P9047

== ENCOUNTER → 2022-11-23 02:54 | Outpatient (BNV) | payer SELFPAY | PROVIDERS: Emergency Provider Emergency Medicine; Visit Provider Nurse Practitioner Family | DX: R06.02 Shortness of breath (principal) | CPT/HCPCS: 36556 ==